=== PATIENT | male | born 1945 | race Caucasian/White ===

== ENCOUNTER 2020-02-16 08:15 | Emergency (ER) | payer OTHER, SELFPAY ==
[2020-02-16 08:35] VITALS: BP 143/69; PULSE 71; RESP 14; TEMP 36.8; O2SAT 99
--- NOTE | 2020-02-16 09:02 | ED.ABDPAIN ---
HPI - Abdominal Pain General Chief Complaint: Abdominal Pain Stated Complaint: Abdominal Pain Time Seen by Provider: 02/16/20 09:02 Source: patient and RN notes reviewed Mode of arrival: ambulatory Limitations: no limitations History of Present Illness HPI narrative: This is a 74 years old male presents to the office for an evaluation of left side abdominal pain. Associated with vomiting. Pain is intermittent with sharp shooting at times. Symptom has slightly better since he vomited however he still felt pain. He also reported right side flank pain for 2 weeks. He is unsure if the flank pain related to gardening or his kidney stone. Denies urinary symptoms. Denies fever. Denies sick contact. Admits to history of colitis and diverticulitis. Denies history of hernia or small bowel obstruction. He still have his appendix and gallbladder. No treatment prior to arrival. He had popsicle this morning. Related Data Home Medications Medication Instructions Recorded Confirmed cetirizine 10 mg PO DAILY 02/16/20 02/16/20 Allergies Allergy/AdvReac Type Severity Reaction Status Date / Time ciprofloxacin [From Cipro] Allergy Hives Verified 02/16/20 08:59 metronidazole [From Flagyl] Allergy Hives Verified 02/16/20 09:00 Review of Systems Review of Systems: Narrative: CONSTITUTIONAL: Denies fever, chills EYES: Denies visual changes ENT: Denies rhinorrhea, congestion, sore throat, otalgia. CARDIOVASCULAR: Denies chest pain, palpitation. RESPIRATORY: Denies dyspnea, wheezing, cough GASTROINTESTINAL: Denies diarrhea. Reports abdominal pain, vomiting and bloating feeling GENITOURINARY: Denies urinary symptoms SKIN: Denies rash MUSCULOSKELETAL: Reports right side back; contribute to walking out in the garden. NEUROLOGIC: Denies lightheaded All other systems reviewed are negative, except as documented in HPI. [facility] Past Medical History Medical History (Updated 02/16/20 @ 09:25 by ERIC Valadez) History of colitis History of diverticulosis Comments At time of signature, I agree with nursing past medical, surgical, social and family history. There is no relevant family history pertinent to the presenting complaint. Exam Narrative: Exam Narrative: GENERAL: This is a well-nourished, well-developed patient, in no apparent distress. CARDIOVASCULAR: Regular rate and rhythm without murmurs, gallops, or rubs. RESPIRATORY: Clear to auscultation. Breath sounds equal bilaterally. No wheezes, rales, or rhonchi. GASTROINTESTINAL: Abdomen soft, with slight tenderness thoughout, nondistended. Bowel sounds are active. No hepato-splenomegaly, or palpable masses. No guarding. Umbilical hernia noted during examination SKIN: warm, intact with no suspicious lesions or rash, good texture and turgor. NEURO: awake, alert, and oriented to person, place and time. There were no obvious focal neurologic abnormalities. Steady gait EXTREMITIES: Normal range of motion. No edema. BACK: Nontender without deformity or crepitance. No flank tenderness. María Coma Scale Eye Opening: Spontaneous 4 [place] Coma Scale Motor: Obeys Commands 6 [place] Coma Scale Verbal: Oriented 5 Course Vital Signs Vital signs: Vital Signs Temperature 98.2 F 02/16/20 08:35 Pulse Rate 71 02/16/20 08:35 Respiratory Rate 14 02/16/20 08:35 Blood Pressure 143/69 H 02/16/20 08:35 Pulse Oximetry 99 02/16/20 08:35 Temperature 98.2 F 02/16/20 08:35 Pulse Rate 71 02/16/20 08:35 Respiratory Rate 14 02/16/20 08:35 Blood Pressure 143/69 H 02/16/20 08:35 Pulse Oximetry 99 02/16/20 08:35 Transfer Transfered to: [facility] Transportation: Other (private car) Transfer rationale: Diagnostic test Accepting physician: Dr. Herrera; reports given JOAQUIM Sutton MDM - Abdominal Pain MDM Narrative Medical decision making narrative: ER for further evaluation Differential Diagnosis Differential diagnosis: Likely abdominal pain, ac
== END 2020-02-16 09:26 | disposition short-term general hospital (02) ==
PROVIDERS: Emergency Provider Nurse Practitioner; PCP Family Medicine
DX: R10.84 Generalized abdominal pain (principal); K57.90 Diverticulosis of intestine, part unspecified, without perforation or abscess without bleeding
CPT/HCPCS: 99202; G0463

== ENCOUNTER 2023-07-22 12:25 | Outpatient (CLI) | payer OTHER, SELFPAY ==
--- NOTE | ~2023-07-22 | PE_ITS ---
EXAMINATION: PET_PETPSMAST_PT DATE: 07/25/2023 07:09 INDICATION: Malignant neoplasm of prostate. Hormone sensitive status. TECHNIQUE: 8.790 mCi of piflufolastat F-18 was administered intravenously. Low dose computed tomograp hy (CT) images were acquired from the base of the brain to the proximal thighs for attenuation correc tion and anatomic localization. Automated exposure control was employed. Dose-length product (DLP) wa s 555 mGy-cm. Positron emission tomography (PET) images were acquired in the same distribution. COMPARISON: None FINDINGS: Head/neck: There are no pathologically enlarged lymph nodes. Chest: Lungs demonstrate mild atelectasis. No pleural effusion. The heart size is normal. There are c oronary artery calcifications. No pericardial effusion. There are no pathologically enlarged lymph no sajan. There is a small sliding hiatal hernia. Abdomen/pelvis/proximal thighs: The liver, gallbladder, spleen, pancreas, and adrenal glands are norm al. There is a 7 mm cyst in right kidney. There are 4 stones in left kidney measuring up to 4 mm. The prostate is mildly enlarged. There is increased activity in the prostate is with maximum SUV of 35.7 . There are bilateral inguinal hernias containing fat. There is diverticulosis of the colon without e vidence of diverticulitis. There are no dilated loops of bowel. The appendix is normal. There are no pathologically enlarged lymph nodes. There is no free intraperitoneal fluid. There is no osseous toby gnancy. IMPRESSION: 1. Mildly enlarged prostate with maximum SUV of 35.7, consistent with primary malignancy. No evidence of metastatic disease. Reviewed, dictated and finalized at location A. ATIENT CODING SPECIALIST IMPRESSION: 1. Mildly enlarged prostate with maximum SUV of 35.7, consistent with primary m alignancy. No evidence of metastatic disease.
== END 2023-07-22 12:26 | disposition home or self-care (01) ==
PROVIDERS: PCP Family Medicine; Visit Provider Urology
DX: Z19.1 Hormone sensitive malignancy status (principal)
CPT/HCPCS: 78815; A9595

== ENCOUNTER 2025-02-15 12:53 | Observation (INO) | payer MEDICARE, SELFPAY ==
--- NOTE | ~2025-02-15 | XR_ITS ---
EXAMINATION: XR sm bowel follow through DATE: 02/15/2025 17:22 INDICATION: Small bowel obstruction versus ileus TECHNIQUE: Laboratory Equipment Cleaner radiograph(s) of the abdomen was/were obtained. Oral contrast was administered, and sequential radiographs of the abdomen were obtained until oral contrast was noted to be in the proxi mal colon. Spot fluoroscopic images of the small bowel were obtained. Fluoroscopy exposure time was 0 .4 minutes. A total of 9 fluoroscopic images and 10 overhead radiographs were obtained. Total DAP was 3.9 Gycm^2. COMPARISON: None. FINDINGS: Laboratory Equipment Cleaner image demonstrates excreted contrast in bilateral renal collecting systems and in the bladder l ikely related to reported outside institution contrast-enhanced CT performed earlier in the day. Abdullahi sit time from the stomach to proximal colon was approximately 1.5 hours. There is normal caliber and mucosal fold pattern throughout the small bowel. Terminal ileum is normal. IMPRESSION: 1. Normal small bowel follow-through study. Reviewed, dictated and finalized at location A.
[2025-02-15 11:50] VITALS: BMI 25.1
--- OUTSIDE RECORDS SUMMARY | 2025-02-15 11:58 | XMS_ITS | Referral Summary ---
Author Organization [facility] [place] [address] [facility] lt Address [address] [place] [address] Care Team Providers Care Tack Picker Name Role Phone Justen Interiano MD Primary Care Provider + [phone] Alessandro Andre MD Unavailable [phone] Tashi Yang MD PhD Unavailable [phone]- [phone] Dinorah Medrano MD Unavailable [phone] Benton Morris MD Unavailable [phone] Encounters Date Type Department Care Team Description 02/15/2025 6:51 AM CDT - 02/15/2025 11:08 AM CDT Emergency [facility] Emergency Department [address] [place] [address] Johann Hassan MD SBO (small bowel obstruction) (HCC) (Primary Dx) Discharge Disposition: Discharge to a critical access hospital 01/07/2025 8:30 AM CDT Office Visit [facility] [address] [place] [address] Evelia Escalante NP Bacterial conjunctivitis of right eye (Primary Dx) 11/27/2024 8:00 AM CDT Lab [facility] [address] [place] [address] Malignant neoplasm of prostate (HCC) 11/27/2024 8:00 AM CDT Office Visit [facility] Oncology [address] [place] [address] Medical Office [address] [place] [address] Benton Morris MD Follicular lymphoma grade I, unspecified body region (HCC) (Primary Dx); Malignant neoplasm of prostate (HCC) 11/26/2024 Telephone [facility] [address] [place] [address] Office [facility] [address] [place] [address] Isaura Barlow, CLT from Last 3 Months Allergies Active Allergy Reactions Criticality Noted Date Comments Ciprofloxacin Hives Medium 02/16/2020 Clindamycin Rash Reaction: rash, , Metronidazole Hives Medium 02/16/2020 Penicillins Hives Medium Medications aspirin 81 mg enteric coated tablet Take 1 tablet (81 mg total) by mouth daily Active ibuprofen (ADVIL,MOTRIN) 400 mg tabletIndicatio ns:Pain Take by mouth every 6 (six) hours as needed for pain Active calcium citrate malate-vit D3 250 mg-2.5 mcg (100 unit) tablet Take 2 tablets by mouth 2 (two) times a day Active methocarbamoL (ROBAXIN) 500 mg tablet Take 1 tablet (500 mg total) by mouth 4 (four) times a day as needed for muscle spasms 60 tablet 2 11/22/19 24 Active polyethylene glycol (MIRALAX) 17 gram/dose bulk powder Take 17 g by mouth daily Active psyllium, aspartame, SF (METAMUCIL SF) 3.4 gram packet Take 1 packet by mouth daily Active amLODIPine (NORVASC) 5 mg tablet Take 1 tablet by mouth once daily 90 tablet 11/20/19 25 Active albuterol HFA (PROVENTIL HFA,VENTOLIN HFA,PROAIR HFA) 90 mcg/actuation inhalerIndicati ons:Moderate persistent asthma, unspecified whether complicated INHALE 2 PUFFS BY MOUTH EVERY 6 HOURS NEEDED FOR WHEEZING 9 g 02/09/20 25 Active hydrOXYzine (ATARAX) 25 mg tablet TAKE 1 TABLET BY MOUTH EVERY 6 HOURS NEEDED FOR ITCHING 90 tablet 02/09/20 25 Active fluticasone propion-salmete roL (ADVAIR DISKUS) 250-50 mcg/dose diskus inhaler INHALE 1 PUFF BY MOUTH TWICE DAILY. RINSE MOUTH WITH WATER AFTER USE, DO NOT SWALLOW. 60 each 02/09/20 25 Active hydrOXYzine (ATARAX) 25 mg tablet TAKE 1 TABLET BY MOUTH EVERY 6 HOURS NEEDED FOR ITCHING 90 tablet 10/16/19 25 025 Discontinued albuterol HFA (PROVENTIL HFA,VENTOLIN HFA,PROAIR HFA) 90 mcg/actuation inhalerIndicati ons:Moderate persistent asthma, unspecified whether complicated INHALE 2 PUFFS BY MOUTH EVERY 6 HOURS NEEDED FOR WHEEZING 9 g 11/20/19 25 025 Discontinued fluticasone propion-salmete roL (ADVAIR DISKUS) 250-50 mcg/dose diskus inhaler INHALE 1 PUFF BY MOUTH TWICE DAILY. RINSE MOUTH WITH WATER AFTER USE, DO NOT SWALLOW. 60 each 01/08/20 25 025 Discontinued Active Problems Problem Noted Date Diagnosed Date Limitation of joint motion of finger, right /0 12/2023 Assessment & Plan (06/22/2024 11:32 AM FINANCE ADVISOR): Limitation in ROM in R arm but no pain noted. There is weakness as well. Will refer to ortho for further evaluation. Encounter for Medicare annual wellness exam 03/19 Assessment & Plan (04/10/2024 10:39 AM CDT): Visit preventive in nature. We reviewed medications, chronic conditions, risk factors, lifestyle recommendations. Reviewed immunization recommendations. Follow-up in 1 year for annual wellness. Irritable bowel syndrome 04/02/2024 Chronic constipation 04/02/2024 History of Clostridioides difficile infection Irritable bowel syndrome wit h both constipation and diarrhea 02/16/2024 History of Clostridium difficile infection 02/15 Hospital discharge follow-up 12/21/2023 Assessment & Plan (12/21/2023 11:06 AM CDT): Kita Campbell NP have personally reviewed pertinent inpatient and/or ED records, including discharge medications and Clindesk if applicable. This patient's discharge medication list has been reviewed and reconciled with his outpatient medication list and has also been reviewed with patient and/or caregiver. I have noted any changes. Abdominal pain 12/14/2023 Diverticulitis of colon 08/24/2023 Overview (08/24/2023): Phreesia 04/17/2023 UTI (urinary tract infection) 08/24/2023 Situational anxiety 07/14/2023 Assessment & Plan (07/14/2023 10:35 AM FINANCE ADVISOR): Good response to p.r.n. use of hydroxyzine, reports sleeping well with use medication. Has had difficulty recently t urning brain off , multiple recent office visits and hospitalizations. Overall feels moods are good, denies feeling depressed. Patient with strong family support. Hemorrhage 12/23/2022 LLQ pain 11/12/2022 Assessment & Plan (11/12/2022 2:58 PM CDT): Chronic pain happens intermittently LLQ with bloating and constipation about every 2 weeks, usually takes 3 BMs to feel better, BM starts off hard then becomes more loose and explosive before relief of pain. Usually has normal formed BM daily outside of these episodes, takes miralax every other day to keep bowel movements regular No prior surgeries No NSAID use No known family history of GI issues Recently hospitalized for SBO where CT showed transition point at the right iliac fossa that improved with conservative management Small-bowel follow-through showed a soft tissue density mass in the mesentery measuring 2.4 x 2 cm.Patient had a previous similar episode about 2 and half years ago was told he had a bowel obstruction at that time was treated conservatively as well. Colonoscopy 2016 with left diverticulosis and internal hemorroids Plan Follow up repeat CT scheduled for next month for reevaluation of mesenteric mass previously seen on small bowel follow through. Given the chronicity of his symptoms and lack of other systemic issues a raging malignancy is not likely. I agree with Dr. Ochoa that an underlying possible inflammatory process of the small bowel or adhesion from prior diverticulitis could contribute to his symptoms. CRP was previously noted to be elevated to 50 in 2019. Will repeat. MR enterography would given a better evaluation of the small bowel, will obtain pending repeat CT. 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 Known mass. Will continue to monitor. Assessment & Plan (12/24/2022 11:28 AM CDT): In setting of recurrent SBO. CT A&P 11/24/22 notable for improved small bowel distension, but irregular 2.7 X 2.5 cm X1.[address] read suggesting possible lymphoma vs. Carcinoid. - S/p IR bx 12/23 - Q6 CBC's-- hgb stable - Outpt follow up with Dr. Ochoa Recurrent microscopic hematuria 10/22/2022 Mild intermittent asthma without complication Small bowel obstruction 10/21/2022 Assessment & Plan (04/10/2024 10:37 AM CDT): Denies abdominal pain. Bowels are moving. He has colonoscopy scheduled next month. Following closely with GI and will continue to do so. Assessment & Plan (07/14/2023 10:33 AM FINANCE ADVISOR): Denies any abdominal pain following hospital discharge. Patient continues MiraLax, reports normal BMs. No nausea or vomiting. Denies any blood in stools. Recommended he follow-up with established central supply worker. Assessment & Plan (12/23/2022 12:43 PM CDT): Continue miralax daily Assessment & Plan (11/04/2022 10:09 AM CDT): I am going to order a repeat CT scan to evaluate the mesenteric mass seen on the hospital scan. Given the lack of surgery and is intermittent symptoms that do not appear to be related to this mesenteric lesion he may have some intrinsic issues with the small bowel. These may be intermittent bouts of enteritis or some kind of inflammatory process. It is always possible that he has some kind of adhesive band from a prior episode of diverticulitis. I am going to refer him to GI to have them weigh in on these symptoms. Bronchitis 08/25/2022 Shortness of breath 08/25/2022 Assessment & Plan (08/25/2022 4:26 PM FINANCE ADVISOR): Resolved. Breathing even and unlabored. No chest pain or tightness. Will continue to monitor. Moderate persistent asthma 08/25/2022 Assessment & Plan (08/25/2022 12:54 PM FINANCE ADVISOR): Encouraged continue use of ICS and prn use of albuterol. No concerning findings on exam. Fleeting episode of chest pain preceeded by wheezing and improved with use of inhalers. Advised patient to follow up immediately and go to ER if experiencing episodes of chest pain. Follicular lymphoma grade I 07/18/2022 Overview (08/24/2023): of the small bowel, treated 2022, and resolved Assessment & Plan (04/10/2024 10:38 AM CDT): Monitoring with Oncology. JUANIS with most recent screening. Will continue following closely with Oncology. Malignant neoplasm of prostate 07/18/2022 Cancer Staging:Clinical: Unsigned Assessment & Plan (04/10/2024 10:11 AM CDT): Completed radiation in November. Will continue monitoring with Urology. Assessment & Plan (12/21/2023 11:05 AM CDT): Following closely with Urology and will continue to do so. Assessment & Plan (07/14/2023 10:34 AM FINANCE ADVISOR): Reviewed office visit notes of Dr. Kirk, patient will proceed with radiation oncology. Scheduled for PET scan early next month. Nephrolithiasis 07/18/2022 Diverticulosis 02/16/2020 Partial small bowel obstruction 02/16/2020 Localized swelling on right hand 04/11/2019 Assessment & Plan (06/22/2024 11:31 AM FINANCE ADVISOR): Swelling continues will add Meloxicam to aid in relief of swelling and hopefully restore ROM. Antibiotic-induced allergic rash 03/16/2019 Bleeding from the nose 08/17/2017 Assessment & Plan (08/17/2017 1:54 PM FINANCE ADVISOR): Use saline nasal spray to keep air way moist. Use humidifier. Do not blow nose forcefully for the next week. Use antibiotic ointment. BMI 26.0-26.9,adult 08/17/2017 Assessment & Plan (06/22/2024 11:31 AM FINANCE ADVISOR): Weight appropriate for patient. Assessment & Plan (08/17/2017 2:53 PM FINANCE ADVISOR): BMI wnl-continue with exercise and diet Excessive ear wax, bilateral 08/17/2017 Assessment & Plan (08/17/2017 2:55 PM FINANCE ADVISOR): Excessive Ear Wax Prevention Cerumen accumulation or excessive ear wax can cause symptoms like-Hearing loss ?Earache ?Ear fullness ?Itchiness ?Reflex cough ?Dizziness ?Tinnitus Normal ears use a cotton ball dipped in mineral oil, olive oil, Baby oil, or Carver oil and place in the external canal for 10 to 20 minutes once per week. For Chronic cerumen impactions can perform on a scheduled baseis-3 drops of olive oil or Baby oil in each ear, three times daily for Three weeks, Three times per year. Routine cleaning of the ears by a health professional every 6 to 12 months is also suggested. Patients should be instructed that chronic use of cotton swabs or cerumenolytics should not be performed. Cerumenolytics are safe to use in patients with NO history of infections, perforations, or otologic surgery. Cerumenolytics should be avoided if tympanic membrane damage is suspected. If a patient has a history of drainage from the ear, ear pain, or frequent ear infections earlier in life, then the tympanic membrane may be impaired and cerumenolytics should not be employed. If safe for you, use Debrox drops, Hydrogen peroxide or Benzalkonium Chloride softening agents Urticaria 07/20/2016 Overview (10/22/2016): Urticaria Assessment & Plan (04/11/2019 11:30 AM CDT): Prednisone taper & triamcinolone cream sent to pharmacy. Will start prednisone today. Discussed cold compresses, cool showers, ice pack to back & nothing hot to area. Discussed prednisone SE & scheduling. Reviewed signs secondary infection. If rash is not improving after completing steroids--return to clinic. Triamcinolone cream sent. Aware to apply thin layer. Reviewed red flags. Assessment & Plan (03/16/2019 10:09 AM CDT): Complete the prednisone as directed You may use Benadryl or Zyrtec for itching You can use an OTC hydrocortisone cream to soothe your skin topically Keep your skin cool & wear loose clothing to avoid becoming hot, which could increase the itching. If your rash is not getting better after finishing the steroids, please RTC or follow up w PCP If your symptoms worsen- go to ER HTN (hypertension) 12/01/2013 Overview (08/24/2023): Hypertension Assessment & Plan (04/10/2024 10:37 AM CDT): Stable. Continue amlodipine. Continue heart healthy diet. Will continue to monitor. Assessment & Plan (12/23/2022 12:44 PM CDT): Continue home BP meds Asthma 12/01/2013 Overview (08/24/2023): ASTHMA NOS Phreesia 04/17/2023 Disorder of prostate 12/01/2013 Overview (10/22/2016): PROSTATIC DISORDER NOS Elevated prostate specific antigen (PSA) 013 Overview (08/24/2023): Elevated PSA Left ureteral stone Resolved Problems Problem Noted Date Diagnosed Date Resolved Date C. difficile colitis 12/21/2023 024 Assessment & Plan (12/21/2023 11:06 AM CDT): Symptomatically improving. Continue vancomycin. Follow-up with Gastroenterology as directed. Immunizations Immunization Administration Dates Next Due COVID-19 mRNA (LookFlow) 0.3 m L (30 mcg) vaccine (12 years and up) 04/20/2024,04/13/2023 Influenza, Quadrivalent, Hig h Dose, Preservative Free, Intrr 04/04/2023,03/31/2022 Influenza, Quadrivalent, Spl it, Intramuscular 07/26/2017 Influenza, Quadrivalent, Spl it, Preservative Free, Intramuscular 07/26/2018 Influenza, Split 11/21/2013,11/21/2013 Influenza, Trivalent, High D ose, Split, Preservative Free, Intramuscular 04/10/2024,07/27/2019 Influenza, Trivalent, IM (MDV) 06/03/2008 Influenza, Unspecified 04/13/2023,2020,03/31/2021,03/30(Deferred: Patient Refused) Moderna SARS-CoV-2 Monovalen t Vaccination (12+ YRS) 02/13/2022,05/09/2021,09/30/2020,08/27 Pfizer Sars-Cov-2 Bivalent V accination (12+ YRS) 04/16/2022 Pneumococcal Conjugate PCV 13 02/27/2019 Pneumococcal Conjugate Pcv20 12/21/2023 Pneumococcal Conjugate, Unspecified 03/18(Deferred: Patient Refused),07/18/2019(Deferred: Patient Refused) Pneumococcal Polysaccharide PPV23 09/08/2007 Sars-cov-2 Covid-19 Mrna, Bi valent, Original/omicron Ba.1 04/20/2024 Td, adsorbed 09/08/2007 ZOSTER LIVE 01/17/2013,01/17/2013 Social History Tobacco Use Types Packs/Day Years Used Date Smoking Tobacco: Former Cigarettes 1 969 - 1984 Smokeless Tobacco: Never Tobacco Cessation:Counseling Given: Not Answered Alcohol Use Standard Drinks/Week Comments No 0 (1 standard drink = 0.6 oz pur e alcohol) AUDIT-C Answer Date Recorded Q1: How often do you have a drink containing alcohol? Never 05/14/2024 Q2: How many drinks containi ng alcohol do you have on a typical day when you are drinking? Patient does not drink Frequency of Binge Drinking Not on file 04/18 PHQ-2 Answer Date Recorded PHQ-2 Total Score (If total score is 3 or more points, staff should administer the PHQ-9) 0 06/22/2024 Personal Safety Answer Date Recorded Have you ever been in or are you currently in a harmful physical or emotional relationship or is someone making you feel afraid or unsafe? Denies 02/15/2025 Sex and Gender Information Value Date Recorded Sex Assigned at Not on file Legal Sex Male 11:33 AM FINANCE ADVISOR Gender Identity Not on file Sexual Orientation Not on file Last Filed Vital Signs Vital Sign Reading Time Taken Comments Blood Pressure 133/67 02/15/2025 11:00 AM CDT Pulse 60 02/15/2025 11:00 AM CDT Temperature 36.2 C (97.2 F) 02/15/2025 6:50 AM CDT Respiratory Rate 16 02/15/2025 11:00 AM CDT Oxygen Saturation 94% 02/15/2025 11:00 AM CDT Inhaled Oxygen Concentration - - Weight 70.3 kg (155 lb) 02/15/2025 6:50 AM CDT Height 166.4 cm (5' 5.5) 02/15/2025 6:50 AM CDT Body Mass Index 25.4 02/15/2025 6:50 AM CDT Plan of Treatment Not on file Medical Devices Explanted Type Area Rehab Therapist Device Identifier Shelf Expiration Date Model / Serial / Lot [employer] 180-222 Contour 6fr 24cm Large Inner Lumen Low Profile Bladder Jesse Taper Latex Free - [id number] Implanted:Qty: 1 on 02/20/2020 by Alessandro Andre MD at [facility] Explanted:Qty: 1 on 03/05/2020 by Alessandro Andre MD Left: Ureter [employer] 12/18/2022 180-222 / / [id number] Procedures Procedure Name Priority Date/Time Associated Diagnosis Comments URINALYSIS AND REFLEX TO MICROSCOPIC AND CULTURE STAT 02/15/2025 10:[address] ABDOMEN PELVIS W CONTRAST ED 02/15/2025 7:47 AM CDT SEPSIS LACTATE WITH REFLEX Routine 02/15/2025 7:27 AM CDT EGFR STAT 02/15/2025 7:18 AM CDT DIFFERENTIAL AUTO STAT 02/15/2025 7:1 8 AM CDT LIPASE STAT 02/15/2025 7:18 AM CDT COMPREHENSIVE METABOLIC PANEL STAT 02/15/2025 7:18 AM CDT CBC WITH AUTO DIFFERENTIAL STAT 02/15/2025 7:18 AM CDT DIFFERENTIAL AUTO Routine 11/27/2024 7:4 5 AM CDT Malignant neoplasm of prostate (HCC) CBC WITH AUTO DIFFERENTIAL Routine 11/27/2024 7:45 AM CDT Malignant neoplasm of prostate (HCC) LACTATE DEHYDROGENASE Routine 11/27/2024 7:45 AM CDT Malignant neoplasm of prostate (HCC) from Last 3 Months Results * (ABNORMAL) Urinalysis reflex to microscopic and culture Urine (02/15/2025 10:25 AM CDT) Color, ur Straw Yellow Clarity, ur Clear Clear [facility] (YA) Specific gravity, ur 1.040(H) 1.003 - 1.030 [facility] (YA) pH, urine 8.0 [facility] (YA) Comment: Interpretive Data U rine pH is affected by diet, medications, systemic acid-base disturbances, and renal tubular function. pH may affect urinary stone formation. For example, urine pH below 6.0 may help reduce the tendency for calcium phosphate stones and pH greater than 6.0 may reduce the tendency for uric acid stone formation. Source: Steve I & Combine Current Interpretive Data was last revised on 2017 Protein, ur ql Negative Negative [facility] R [facility] (YA) Glucose, ur ql Negative Negative [facility] (YA) Ketones, ur 2+(A) Negative [facility] (YA) Bilirubin, ur Negative Negative [facility] (YA) Blood, ur Negative Negative [facility] (YA) Urobilinogen, ur <2.0 <2.0 mg/dL [facility] (YA) Nitrite, ur Negative Negative [facility] (YA) Leukocyte esterase, ur Negative Negative [facility] (YA) UA reflex comment Reflex conditions for microscopic UA and culture not met. [facility] (YA) Urine 02/15/2025 10:2 5 AM CDT 02/15/2025 10:30 AM CDT us Johann Hassan MD LAB MICROBIOLOGY - GENERAL ORDERABLES Final Result [facility] [address] [facility] Department [place] [address] * CT Abdomen Pelvis W Contrast (02/15/2025 7:47 AM CDT) Anatomical Region Laterality Modality Body N/A Computed Tomogra phy 02/15/2025 7:54 AM CDT Narrative 02/15/2025 8:03 AM CDT EXAM DESCRIPTION: CT ABDOMEN PELVIS W CONTRAST REASON FOR STUDY: Abdominal pain, acute, nonlocalized Abdominal pain, vomiting and diarrhea that started at midnight No surgeries TECHNIQUE: CT scan of the abdomen and pelvis performed with intravenous and without oral contrast using helical scanning technique with dynamic intravenous contrast injection. Reconstructed coronal and sagittal MPR images reviewed. All images stored on PACS. Automated exposure control was used as a dose optimization technique for this examination. CONTRAST TYPE/DOSE: 75mL of IOVERSOL 350 MG IODINE/ML INTRAVENOUS SYRINGE injected via intravenous COMPARISON: 08/20/2024 FINDINGS: LOWER CHEST: No significant pulmonary abnormalities. No effusion. LIVER: Normal size. No identified cystic or solid masses. GALLBLADDER: Normally distended BILE DUCTS: No intrahepatic or extrahepatic ductal dilatation. SPLEEN: Normal size. No focal lesions. PANCREAS: No identified cystic or solid masses. No significant calcifications. No adjacent inflammation or peripancreatic fluid collections. Pancreatic duct not dilated. ADRENALS: Normal. KIDNEYS/URINARY TRACT: Right kidney demonstrates no stone, hydronephrosis or perinephric stranding. Left kidney demonstrates mid and lower pole 0.4 cm nonobstructive stones. No hydronephrosis or hydroureter. Midpole hypo density most suggestive of simple cysts measuring 1.4 cm unchanged from previous with no follow-up required per guidelines. Urinary bladder is unremarkable. GI: The stomach, descending and transverse duodenum appear unremarkable. Transverse duodenal diverticulum measures 1.9 cm without surrounding induration. Generally unchanged. Loops of small bowel demonstrate moderate fluid and air filled distention extending to the mid ileum and transitioning to a more normal caliber. No pneumatosis, marked wall thickening, abnormal enhancement pattern, surrounding induration or adenopathy. Exact etiology is uncertain. Consider severe ileus or developing small bowel obstruction. The terminal ileum, cecum and appendix appear normal. Colon demonstrates small to moderate stool burden. PERITONEUM: No ascites or free air. RETROPERITONEUM: Subtle hazy density along the small bowel mesentery is similar to previous and may be postinflammatory. REPRODUCTIVE: No significant abnormality. VASCULATURE: No abdominal aortic aneurysm. MUSCULOSKELETAL: No significant abnormality. OTHER: No other abnormality. IMPRESSION: 1. Moderate fluid and air-filled distention of small bowel extending to the mid ileum with transition to a more normal caliber. Consider severe ileus or developing small bowel obstruction. 2. Subtle hazy density along the small bowel mesentery is similar to previous and may be postinflammatory. 3. Nonobstructive left renal stones without hydronephrosis or hydroureter. 4. Transverse duodenal diverticulum without surrounding induration. THIS IS AN ELECTRONICALLY VERIFIED FINAL REPORT 02/15/2025 8:03 AM - Electronically signed by Benton Castaneda M.D. RB: LUCIUS Report ID: [id number] Reading Location: [id number] Procedure Note Benton Castaneda MD - 02/15/2025 EXAM DESCRIPTION: CT ABDOMEN PELVIS W CONTRAST REASON FOR STUDY: Abdominal pain, acute, nonlocalized Abdominal pain, vomiting and diarrhea that started at midnight Nosurgeries TECHNIQUE: CT scan of the abdomen and pelvis performed with intravenousand without oral contrast using helical scanning technique with dynamic intravenous contrast injection. Reconstructed coronal and sagittal MPRimages reviewed. All images stored on PACS. Automated exposure control was usedas a dose optimization technique for this examination. CONTRAST TYPE/DOSE: 75mL of IOVERSOL 350 MG IODINE/ML INTRAVENOUSSYRINGE injected via intravenous COMPARISON: 08/20/2024 FINDINGS: LOWER CHEST: No significant pulmonary abnormalities. No effusion. LIVER: Normal size. No identified cystic or solid masses. GALLBLADDER: Normally distended BILE DUCTS: No intrahepatic or extrahepatic ductal dilatation. SPLEEN: Normal size. No focal lesions. PANCREAS: No identified cystic or solid masses. No significant calcifications. No adjacent inflammation or peripancreatic fluidcollections. Pancreatic duct not dilated. ADRENALS: Normal. KIDNEYS/URINARY TRACT: Right kidney demonstrates no stone,hydronephrosis or perinephric stranding. Left kidney demonstrates mid and lower pole 0.4 cm nonobstructive stones.No hydronephrosis or hydroureter. Midpole hypo density most suggestive ofsimple cysts measuring 1.4 cm unchanged from previous with no follow-up requiredper guidelines. Urinary bladder is unremarkable. GI: The stomach, descending and transverse duodenum appear unremarkable. Transverse duodenal diverticulum measures 1.9 cm without surrounding induration. Generally unchanged. Loops of small bowel demonstrate moderate fluid and air filled distention extending to the mid ileum and transitioning to a more normal caliber. No pneumatosis, marked wall thickening, abnormal enhancement pattern,surrounding induration or adenopathy. Exact etiology is uncertain. Consider severeileus or developing small bowel obstruction. The terminal ileum, cecum and appendix appear normal. Colon demonstrates small to moderate stool burden. PERITONEUM: No ascites or free air. RETROPERITONEUM: Subtle hazy density along the small bowel mesentery is similar to previous and may be postinflammatory. REPRODUCTIVE: No significant abnormality. VASCULATURE: No abdominal aortic aneurysm. MUSCULOSKELETAL: No significant abnormality. OTHER: No other abnormality. IMPRESSION: 1. Moderate fluid and air-filled distention of small bowel extending tothe mid ileum with transition to a more normal caliber. Consider severe ileusor developing small bowel obstruction. 2. Subtle hazy density along the small bowel mesentery is similar to previous and may be postinflammatory. 3. Nonobstructive left renal stones without hydronephrosis orhydroureter. 4. Transverse duodenal diverticulum without surrounding induration. THIS IS AN ELECTRONICALLY VERIFIED FINAL REPORT 02/15/2025 8:03 AM - Electronically signed by Benton Castaneda M.D. RB: LUCIUS Report ID: [id number] Reading Location: [id number] Johann Hassan MD IMG CT PROCEDURES F inal Result * Sepsis Lactate w/ Reflex (02/15/2025 7:27 AM CDT) Sepsis Lactate 1.6 0.7 - 2.0 mmol/L Blood 02/15/2025 7:27 AM CDT 02/15/2025 7:31 AM CDT Johann Hassan MD LAB BLOOD ORDERABLE S Final Result Performing Organization Address [facility] Co de Phone Number [facility] ([place]) 1 [facility] Department [place] [address] * (ABNORMAL) eGFR (02/15/2025 7:18 AM CDT) eGFR 51(L) >=60 mL/min/1. 73 m2 Comment: Interpretive Data Reference Interval Normal >/= 90 mL/min/1.73m2 Mildly decreased* 60 - 89 mL/min/1.73m2 Mildly to moderately decreased 45 - 59 mL/min/1.73m2 Moderately to severely decreased 30 - 44 mL/min/1.73m2 Severely decreased 15 - 29 mL/min/1.73m2 Kidney Failure < 15 mL/min/1.73m2 *Relative to young adult level Estimated glomerular filtration rate is determined by the 2020 CKD-EPI equation recommended by the National Kidney [employer] (A Unifying Approach to GFR Estimation: Recommendations of the NKF-ASK Task Force on Reassessing the Inclusion of Race in Diagnosing Kidney Disease, JASN 2020). The CKD-EPI equation should not be used for patients with unstable renal function and has not been validated in children and those over 70. Current interpretive data was last reviewed 2021. Blood 02/15/2025 7:18 AM CDT 02/15/2025 7:25 AM CDT Johann Hassan MD LAB BLOOD ORDERABLE S Final Result [facility] ([place]) 1 [facility] Department [place] [address] * (ABNORMAL) Differential, auto (02/15/2025 7:18 AM CDT) Neutrophil abs 6.33 1.50 - 6.50 K/cumm Imm gran abs 0.02 0.00 - 0.10 K/cumm [facility] ([place]) Lymphocyte abs 0.43(L) 0.80 - 3.30 K/cumm [facility] ([place]) Monocyte abs 0.32 0.20 - 0.80 K/cumm [facility] ([place]) Eosinophil abs 0.02 0.00 - 0.50 K/cumm [facility] ([place]) Basophil abs 0.03 0.00 - 0.10 K/cumm [facility] ([place]) Neutrophil pct 88.5 % [facility] ([place]) Comment: Interpretive Data Percent cell count reference ranges are not reported, since discordance with absolute values may lead to misinterpretation of CBC data. Current Interpretive Data was last revised on 2017. Imm gran pct 0.3 % [facility] ([place]) Comment: Interpretive Data Percent cell count reference ranges are not reported, since discordance with absolute values may lead to misinterpretation of CBC data. Current Interpretive Data was last revised on 2017. Lymphocyte pct 6.0 % [facility] ([place]) Comment: Interpretive Data Percent cell count reference ranges are not reported, since discordance with absolute values may lead to misinterpretation of CBC data. Current Interpretive Data was last revised on 2017. Monocyte pct 4.5 % [facility] ([place]) Comment: Interpretive Data Percent cell count reference ranges are not reported, since discordance with absolute values may lead to misinterpretation of CBC data. Current Interpretive Data was last revised on 2017. Eosinophil pct 0.3 % [facility] ([place]) Comment: Interpretive Data Percent cell count reference ranges are not reported, since discordance with absolute values may lead to misinterpretation of CBC data. Current Interpretive Data was last revised on 2017. Basophil pct 0.4 % [facility] ([place]) Comment: Interpretive Data Percent cell count reference ranges are not reported, since discordance with absolute values may lead to misinterpretation of CBC data. Current Interpretive Data was last revised on 2017. Blood 02/15/2025 7:18 AM CDT 02/15/2025 7:25 AM CDT us Johann Hassan MD LAB BLOOD ORDERABLE S Final Result [facility] ([place]) 1 [facility] Department [place] [address] * (ABNORMAL) CBC with auto differential (02/15/2025 7:18 AM CDT) WBC 7.15 3.80 - 9.90 K/cumm Hgb 15.0 13.0 - 17.5 g/dL [facility] ([place]) Hct 44.5 38.9 - 50.3 % [facility] ([place]) Plt 280 150 - 400 K/cumm [facility] ([place]) MPV 8.7(L) 9.1 - 12.3 fL [facility] ([place]) RBC 5.19 4.30 - 5.80 M/cumm [facility] ([place]) MCV 85.7 81.3 - 96.4 fL [facility] ([place]) MCH 28.9 27.1 - 33.3 pg [facility] ([place]) MCHC 33.7 32.3 - 35.7 g/dL [facility] ([place]) RDW CV 14.1 11.1 - 14.9 % [facility] ([place]) RDW SD 44.0 35.7 - 48.1 fL [facility] ([place]) NRBC abs 0.00 0.00 - 0.01 K/cumm [facility] ([place]) Blood 02/15/2025 7:18 AM CDT 02/15/2025 7:25 AM CDT us Johann Hassan MD LAB BLOOD ORDERABLE S Final Result [facility] ([place]) 1 [facility] Department [place] [address] * Lipase (02/15/2025 7:18 AM CDT) Lipase 26 10 - 99 Units/L [facility] ([place]) Blood 02/15/2025 7:18 AM CDT 02/15/2025 7:25 AM CDT Johann Hassan MD LAB BLOOD ORDERABLE S Final Result [facility] SPE[facility] ([place]) 1 [facility] Department [place] [address] * (ABNORMAL) Comprehensive metabolic panel (02/15/2025 7:18 AM CDT) Sodium 139 135 - 145 mmol/L [facility] ([place]) Potassium, pl 4.2 3.3 - 4.9 mmol/L [facility] ([place]) Chloride 99 97 - 110 mmol/L [facility] ([place]) CO2 23 22 - 32 mmol/L [facility] ([place]) Anion gap 17(H) 2 - 15 mmol/L [facility] ([place]) BUN 20 6 - 25 mg/dL [facility] ([place]) Creatinine 1.39(H) 0.80 - 1.30 mg/dL [facility] ([place]) Glucose 120 70 - 199 mg/dL [facility] ([place]) Comment: Interpretive Data Fasting glucose >/= 126 mg/dl is diagnostic for diabetes. Fasting is defined as no caloric intake for at least 8 hours. Fasting glucose between 100 mg/dl to 125 mg/dl is diagnostic of prediabetes. In a patient with classic symptoms of hyperglycemia or hyperglycemic crisis, a random glucose >/= 200 mg/dl is diagnostic for diabetes. In the absence of unequivocal hyperglycemia, results should be confirmed by repeat testing. The classification and Diagnosis of Diabetes Diabetes Care 2021; 46: S19-S40. Current interpretive data was last revised 2022. Calcium 10.9(H) 8.5 - 10.3 mg/dL [facility] ([place]) Bilirubin, total 0.7 0.1 - 1.2 mg/dL [facility] ([place]) Protein, pl 7.9 6.5 - 8.5 g/dL [facility] ([place]) Albumin 5.4(H) 3.5 - 5.0 g/dL [facility] ([place]) Alk phos 124 40 - 130 Units/L [facility] ([place]) ALT 29 7 - 55 Units/L [facility] ([place]) AST 43 10 - 50 Units/L [facility] ([place]) Blood 02/15/2025 7:18 AM CDT 02/15/2025 7:25 AM CDT us Johann Hassan MD LAB BLOOD ORDERABLE S Final Result [facility] ([place]) 1 [facility] Department [place] [address] * Differential, auto (11/27/2024 7:45 AM CDT) Neutrophil abs 2.55 1.50 - 6.50 K/cumm [facility] ([place]) Comment:Testing performed by : [facility] [address], Medical Office [facility] [address], [place] [address] Imm gran abs 0.01 0.00 - 0.10 K/cumm [facility] ([place]) Comment:Testing performed by : [facility] [address], Medical Office [facility] [address], [place] [address] Lymphocyte abs 0.83 0.80 - 3.30 K/cumm [facility] ([place]) Comment:Testing performed by : [facility] [address], Medical Office [facility] [address], [place] [address] Monocyte abs 0.44 0.20 - 0.80 K/cumm [facility] ([place]) Comment:Testing performed by : [facility] [address], Medical Office [facility] [address], [place] [address] Eosinophil abs 0.29 0.00 - 0.50 K/cumm [facility] ([place]) Comment:Testing performed by : [facility] [address], Medical Office [facility] [address], [place] [address] Basophil abs 0.04 0.00 - 0.10 K/cumm [facility] ([place]) Comment:Testing performed by : [facility] [address], Medical Office [facility] [address], [place] [address] Neutrophil pct 61.2 % [facility] ([place]) Comment: Interpretive Data Percent cell count reference ranges are not reported, since discordance with absolute values may lead to misinterpretation of CBC data. Current Interpretive Data was last revised on 2022. Testing performed by: [facility] [address], Medical Office [facility] [address], [place] [address] Imm gran pct 0.2 % [facility] ([place]) Comment: Interpretive Data Percent cell count reference ranges are not reported, since discordance with absolute values may lead to misinterpretation of CBC data. Current Interpretive Data was last revised on 2022. Testing performed by: [facility] [address], Medical Office [facility] [address], [place] [address] Lymphocyte pct 20.0 % [facility] ([place]) Comment: Interpretive Data Percent cell count reference ranges are not reported, since discordance with absolute values may lead to misinterpretation of CBC data. Current Interpretive Data was last revised on 2022. Testing performed by: [facility] [address], Medical Office [facility] [address], [place] [address] Monocyte pct 10.6 % [facility] ([place]) Comment: Interpretive Data Percent cell count reference ranges are not reported, since discordance with absolute values may lead to misinterpretation of CBC data. Current Interpretive Data was last revised on 2022. Testing performed by: [facility] [address], Medical Office [facility] [address], [place] [address] Eosinophil pct 7.0 % [facility] ([place]) Comment: Interpretive Data Percent cell count reference ranges are not reported, since discordance with absolute values may lead to misinterpretation of CBC data. Current Interpretive Data was last revised on 2022. Testing performed by: [facility] [address], Medical Office [facility] [address], [place] [address] Basophil pct 1.0 % [facility] ([place]) Comment: Interpretive Data Percent cell count reference ranges are not reported, since discordance with absolute values may lead to misinterpretation of CBC data. Current Interpretive Data was last revised on 2022. Testing performed by: [facility] [address], Medical Office [facility] [address], [place] [address] Blood 11/27/2024 7:45 AM CDT 11/27/2024 7:53 AM CDT us Lakisha Trujillo STUD DAIRY CATTLE FARMER LAB BLOOD ORDERABLES Final Result [facility] SPEARS ([place]) 1 [facility] [place] [address] * (ABNORMAL) CBC with auto differential (11/27/2024 7:45 AM CDT) WBC 4.16 3.80 - 9.90 K/cumm [facility] ([place]) Comment:Testing performed by : [facility] [address], Medical Office [facility] [address], [place] [address] Hgb 13.7 13.0 - 17.5 g/dL [facility] ([place]) Comment:Testing performed by : [facility] [address], Medical Office [facility] [address], [place] [address] Hct 41.5 38.9 - 50.3 % [facility] ([place]) Comment:Testing performed by : [facility] [address], Medical Office [facility] [address], [place] [address] Plt 242 150 - 400 K/cumm [facility] ([place]) Comment:Testing performed by : [facility] [address], Medical Office [facility] [address], [place] [address] MPV 8.6(L) 9.1 - 12.3 fL [facility] ([place]) Comment:Testing performed by : [facility] [address], Medical Office [facility] [address], [place] [address] RBC 4.73 4.30 - 5.80 M/cumm [facility] ([place]) Comment:Testing performed by : [facility] [address], Medical Office [facility] [address], [place] [address] MCV 87.7 81.3 - 96.4 fL [facility] ([place]) Comment:Testing performed by : [facility] [address], Medical Office [facility] [address], [place] [address] MCH 29.0 27.1 - 33.3 pg [facility] ([place]) Comment:Testing performed by : [facility] [address], Medical Office [facility] [address], [place] [address] MCHC 33.0 32.3 - 35.7 g/dL [facility] ([place]) Comment:Testing performed by : [facility] [address], Medical Office [facility] [address], [place] [address] RDW CV 14.7 11.1 - 14.9 % [facility] ([place]) Comment:Testing performed by : [facility] [address], Medical Office [facility] [address], [place] [address] RDW SD 47.8 35.7 - 48.1 fL [facility] ([place]) Comment:Testing performed by : [facility] [address], Medical Office [facility] [address], [place] [address] Blood 11/27/2024 7:45 AM CDT 11/27/2024 7:53 AM CDT Lakisha Trujillo STUD DAIRY CATTLE FARMER LAB BLOOD ORDERABLES Final Result [facility] ([place]) 1 [facility] Department [place] [address] * Lactate dehydrogenase (LD) (11/27/2024 7:45 AM CDT) Lactate dehydrogenase (LDH) 194 100 - 250 Units/L Comment:Testing performed by : [facility], [facility], [place], [address] Blood 11/27/2024 7:45 AM CDT 11/27/2024 8:30 AM CDT us Lakisha Trujillo STUD DAIRY CATTLE FARMER LAB BLOOD ORDERABLES Final Result [facility] ([place]) 1 [facility] [place] [address] from Last 3 Months Insurance MEDICARE [facility] [place] [id number] MEDICARE [facility] Advance Directives For more information, please contact: [phone] * Full Code (Latest Code Status on File) Date Activated Date Inactivated Comments 05/15/2024 8:41 AM 05/15/2024 2:24 PM * Full Code Date Activated Date Inactivated Comments 05/15/2024 8:41 AM 05/15/2024 8:41 AM * Full Code Date Activated Date Inactivated Comments 12/14/2023 4:31 PM 12/17/2023 3:56 PM * Full Code Date Activated Date Inactivated Comments 12/23/2022 12:02 PM 12/24/2022 4:02 PM * Full Code Date Activated Date Inactivated Comments 12/23/2022 8:49 AM 12/23/2022 11:50 AM Care Teams Tack Picker Relationship Specialty Start Date End Date [place] [address] PCP - General 06/12/07 Alessandro Andre MD [address] [place] [address] Consulting Physician Urology 02/21/20 Tashi Yang MD PhD [address] [place] [address] Consulting Physician Radiation Oncology 07/26/23 Dinorah Medrano MD [address] [place] [address] [place] [address] Consulting Physician Gastroenterology 12/17/23 Benton Morris MD [address] [place] [address] [place] [address] Medical Oncologist/Operations General Agent Medical Oncology 11/23/24
--- OUTSIDE RECORDS SUMMARY | 2025-02-15 11:58 | XMS_ITS ---
Author Organization [facility] [address] [facility] Address [address] [address] Care Team Providers Care Iron Cutter Name Role Phone Justen Interiano MD Primary Care Provider [phone] Alessandro Andre MD Unavailable [phone] Tashi Yang MD PhD Unavailable [phone] Dinorah Medrano MD Unavailable [phone] Benton Morris MD Unavailable [phone] Active Problems Problem Noted Date Diagnosed Date Limitation of joint motion of finger, right 12/2023 Assessment & Plan (06/22/2024 11:32 AM BRIM CURLER): Limitation in ROM in R arm but [...] Assessment & Plan (12/21/2023 11:06 AM CDT): IKita NP have personally reviewed pertinent inpatient and/or [...] 07/14/2023 Assessment & Plan (07/14/2023 10:35 AM BRIM CURLER): Good response to p.r.n. use of hydroxyzine, [...] so. Assessment & Plan (07/14/2023 10:33 AM BRIM CURLER): Denies any abdominal pain following hospital discharge. Patient continues MiraLax, reports normal BMs. No nausea or vomiting. Denies any blood in stools. Recommended he follow-up with established power system electrical engineer. Assessment & Plan (12/23/2022 12:43 PM CDT): [...] 08/25/2022 Assessment & Plan (08/25/2022 4:26 PM BRIM CURLER): Resolved. Breathing even and unlabored. No chest pain or tightness. Will continue to monitor. Moderate persistent asthma 08/25/2022 Assessment & Plan (08/25/2022 12:54 PM BRIM CURLER): Encouraged continue use of ICS and prn [...] so. Assessment & Plan (07/14/2023 10:34 AM BRIM CURLER): Reviewed office visit notes of Dr. Kirk, patient will proceed with radiation oncology. Scheduled for PET scan early next month. Nephrolithiasis 07/18/2022 Diverticulosis 02/16/2020 Partial small bowel obstruction 02/16/2020 Localized swelling on right hand 04/11/2019 Assessment & Plan (06/22/2024 11:31 AM BRIM CURLER): Swelling continues will add Meloxicam to aid in relief of swelling and hopefully restore ROM. Antibiotic-induced allergic rash 03/16/2019 Bleeding from the nose 08/17/2017 Assessment & Plan (08/17/2017 1:54 PM BRIM CURLER): Use saline nasal spray to keep air way moist. Use humidifier. Do not blow nose forcefully for the next week. Use antibiotic ointment. BMI 26.0-26.9,adult 08/17/2017 Assessment & Plan (06/22/2024 11:31 AM BRIM CURLER): Weight appropriate for patient. Assessment & Plan (08/17/2017 2:53 PM BRIM CURLER): BMI wnl-continue with exercise and diet Excessive ear wax, bilateral 08/17/2017 Assessment & Plan (08/17/2017 2:55 PM BRIM CURLER): Excessive Ear Wax Prevention Cerumen accumulation or excessive ear wax can cause symptoms like-Hearing loss ?Earache ?Ear fullness ?Itchiness ?Reflex cough ?Dizziness ?Tinnitus Normal ears use a cotton ball dipped in mineral oil, olive oil, Baby oil, or [place] oil and place in the external canal [...] Overview (08/24/2023): Elevated PSA Left ureteral stone Current Treatment and Therapy Plans No current plan information found. Past Treatment and Therapy Plans Oncology Chemotherapy Treatment Plan Name Start Date Discontinue Date Treatment Medications Discontinue Reason Plan Provider Cycles RiTUXimab Weekly x 4 - Lymphoma 01/19/2023 03/03/2023 riTUXimab-pvvr (RUXIENCE) IVPB 1 mg/ml Therapy Complete Bill Iraheta MD 1 of 1 cycle started Radiation Treatments * Course [id number]/28/2023 - 11/29/2023 Treatment Period Energy Fraction Dose Fractions Total Dose Plans Planned PROST BST 11/03/2023 - 11/29/2023 180 19 / 3,420 PELV_PROST 09/28/2023 - 11/02/2023 180 25 / 4,500 Reference Points Delivered PROST BST 11/03/2023 - 11/29/2023 3,420 PELVIS 09/28/2023 - 11/02/2023 4,500 Lifetime Dose Tracking * Chemical Lifetime Dose Automatic Entry Manual Entr y Fluoro Time 0.5 minutes 0.5 minutes 0 minutes Air kerma at the reference point (Ka,r) 29.73 mGy 2 9.73 mGy 0 mGy Resolved Problems Problem Noted Date Diagnosed Date Resolved Date C. difficile colitis 12/21/2023 024 Assessment & Plan (12/21/2023 11:06 AM CDT): Symptomatically improving. Continue vancomycin. Follow-up with Gastroenterology as directed.
--- OUTSIDE RECORDS SUMMARY | 2025-02-15 11:58 | XMS_ITS | Clinical Summary ---
Author Organization [facility] Address [address] [place] [address] Phone Care Team Providers Care Stopboard Assembler Name Role Phone Justen Interiano MD Primary Care Provider [phone] Allergies Active Allergy Reactions Criticality Noted Date Comments Clindamycin Rash 11/08/2016 Medications albuterol 108 (90 Base) MCG/ACT Aerosol Solution take 2 Puffs by inhalation every 6 hours as needed. 3 Active amLODIPine (NORVASC) 5 MG Tablet Take 5 mg by mouth daily. 3 Active aspirin EC 81 MG Tablet Delayed Response Take 81 mg by mouth daily. Active fluticasone-aleksanrd meterol (ADVAIR) 250-50 MCG/ACT AEROSOL POWDER, BREATH ACTIVATED take 1 Puff by inhalation in the morning and at bedtime. 2 Active hydrOXYzine (ATARAX) 25 MG Tablet Take 25 mg by mouth every 6 hours as needed. For itching 2 Active ibuprofen (MOTRIN) 400 MG Tablet Take 400 mg by mouth every 6 hours as needed. Active methocarbamol (ROBAXIN) 500 MG Tablet Take 500 mg by mouth every 4 hours as needed. Active polyethylene glycol (GLYCOLAX, MIRALAX) 17 g Pack Take 17 g by mouth daily. Active tamsulosin (FLOMAX) 0.4 MG Capsule Take 1 Capsule by mouth daily. 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 Overview (07/05/2023): of the small bowel, treated 2022, and resolved Prostate cancer 07/18/2022 Diverticulosis 07/18/2022 Nephrolithiasis 07/18/2022 HTN (hypertension) Asthma Encounters Date Type Department Care Team Description 02/15/2025 Travel from Last 3 Months Family History Medical History Relation Name Comments Prostate Cancer Brother 1 Heart Attack Brother 2 Leukemia/Lymphoma Father leukemia Hypertension Mother Stroke Mother No Known Problems Son 1 No Known Problems Son 2 No Known Problems Son 3 Relation Name Status Comments Brother 1 Brother 2 Father Mother Sister Son 1 Alive Son 2 Alive Son 3 Alive Social History Tobacco Use Types Packs/Day Years Used Date Smoking Tobacco: Former Cigarettes Q uit: 1984 Smokeless Tobacco: Never Alcohol Use Standard Drinks/Week Comments No 0 (1 standard drink = 0.6 oz pur e alcohol) [facility] Utilities Answer Date Recorded In the past 12 months has e [employer], gas, oil, or water [employer] threatened to shut off services in your home? No 07/05/2023 Social Connection and Isolation Panel Answer Date Recorded In a typical week, how many times do you talk on the phone with family, friends, or neighbors? Never 07/04/2023 How often do you get together with friends or re latives? Never 07/04/2023 How often do you attend baptism or congregational serv ices? Never 07/04/2023 Do you belong to any clubs o r organizations such as baptism groups, unions, fraternal or athletic groups, or school groups? No 07/04/2023 How often do you attend meet ings of the clubs or organizations you belong to? Never 07/04/2023 Are you , , di vorced, , never , or living with a partner? 07/04/2023 AUDIT-C Answer Date Recorded Q1: How often do you have a drink containing alcohol? Never 07/04/2023 Q2: How many drinks containi ng alcohol do you have on a typical day when you are drinking? Patient does not drink Q3: How often do you have si x or more drinks on one occasion? Never 07/04/2023 Overall Financial Resource Strain (CARDIA) Answe r Date Recorded How hard is it for you to pa y for the very basics like food, housing, medical care, and heating? Not hard at all 07/04/2023 [facility] - Occupational Stress Questionnaire Answer Date Recorded Do you feel stress - tense, restless, nervous, or anxious, or unable to sleep at night because your mind is troubled all the time - these days? Only a little 07/04/2023 Exercise Vital Sign Answer Date Recorde d On average, how many days pe r week do you engage in moderate to strenuous exercise (like a brisk walk)? 2 days 07/04/2023 On average, how many minutes do you engage in exercise at this level? 30 min 07/04/2023 Hunger Vital Sign Answer Date Recorded Within the past 12 months, y ou worried that your food would run out before you got the money to buy more. Never true 07/05/20 23 Within the past 12 months, t he food you bought just didn't last and you didn't have money to get more. Never true 07/05/2023 PRAPARE - Transportation Answer Date Re corded In the past 12 months, has l ack of transportation kept you from medical appointments or from getting medications? No 06/17 In the past 12 months, has l ack of transportation kept you from meetings, work, or from getting things needed for daily living? No 07/05/2023 Housing Stability Vital Sign Answer Bassem e Recorded In the last 12 months, was t here a time when you were not able to pay the mortgage or rent on time? No 07/05/2023 In the last 12 months, how many places have you lived? 1 07/05/2023 In the last 12 months, was t here a time when you did not have a steady place to sleep or slept in a half-way (including now)? No 07/05/2023 Sexually Active Control Partners Comments Yes Female Sex and Gender Information Value Date Recorded Sex Assigned at Not on file Legal Sex Male 10:19 PM CDT Gender Identity Not on file Sexual Orientation Not on file Last Filed Vital Signs Vital Sign Reading Time Taken Comments Blood Pressure 166/88 07/06/2023 5:20 AM DISPLAY ARTIST Pulse 104 07/05/2023 4:00 PM DISPLAY ARTIST Temperature 36.6 C (97.9 F) 07/06/2023 5:20 AM DISPLAY ARTIST Respiratory Rate 16 07/06/2023 7:50 AM DISPLAY ARTIST Oxygen Saturation 94% 07/06/2023 7:50 AM DISPLAY ARTIST Inhaled Oxygen Concentration - - Weight 73.3 kg (161 lb 9.6 oz) 07/04/2023 11:39 PM DISPLAY ARTIST Height 167.6 cm (5' 6) 07/04/2023 11:39 PM DISPLAY ARTIST Body Mass Index 26.08 07/04/2023 11:39 PM DISPLAY ARTIST Plan of Treatment Health Maintenance Due Date Last Done Comments Hepatitis C Virus (HCV) Screening 1945 TdaP Immunization 1945 Zoster Immunization (1 of 2) 03/14/2013 01/17/2013 Respiratory Syncytial Virus (RSV) Immunization (Adult) (1 - 1-dose 75+ series) 2018 Pneumococcal Immunization (50+ years) (3 of 3 - PPSV23, PCV20 or PCV21) 04/24/2019 02/27/2019, 09/08/2007 SARS-COV-2 Immunization ( season) 2024 04/13/2023, 04/16/2022, 02/13/2022, Additional history exists Influenza Immunization (#1) 03/18/202503/19, 04/04/2023, 03/31/2022, Additional history exists DTaP/Tdap/Td Immunization Discontinued 09/08/2007 Pneumococcal Immunization Combined Discontinued 02/27/2019, 09/08/2007 Hepatitis B Immunization Aged Out No longer eligible based on patient's age to complete this topic Human Papillomavirus (HPV) Immunization Aged Out No longer eligible based on patient's age to complete this topic Meningococcal Immunization (ACWY) Aged Out No longer eligible based on patient's age to complete this topic Rotavirus Immunization Aged Out No lo nger eligible based on patient's age to complete this topic Insurance 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 PRE-ARREST: Use entire range of life support measures to stabilize the patient. Care Teams Stopboard Assembler Relationship Specialty Start Date End Date Justen Interiano MD Jignesh [place], [place] [id number] PCP - General Internal Medicine 08/04/16
--- OUTSIDE RECORDS SUMMARY | 2025-02-15 11:58 | XMS_ITS | Encounter Summary ---
Author Organization [facility] Care Team Providers Care Talent Development Analyst Name Role Phone Justen Interiano MD Primary Care Provider [phone] Encounter Details Date Type Department Care Team (Latest Contact Info) Description 02/15/2025 Travel Social History Tobacco Use Types Packs/Day Years Used Date Smoking Tobacco: Former Cigarettes Q uit: 1984 Smokeless Tobacco: Never Alcohol Use Standard Drinks/Week Comments No 0 (1 standard drink = 0.6 oz pur e alcohol) [facility] Utilities Answer Date Recorded In the past 12 months has [employer], gas, oil, or water company threatened to shut off services in your home? No 07/05/2023 Social Connection and Isolation Panel Answer Date Recorded In a typical week, how many times do you talk on the phone with family, friends, or neighbors? Never 07/04/2023 How often do you get together with friends or re latives? Never 07/04/2023 How often do you attend mormonism or yazidism serv ices? Never 07/04/2023 Do you belong to any clubs o r organizations such as mormonism groups, unions, fraternal or athletic groups, or [...] you are drinking? Patient does not drink 12/18/202 3 Q3: How often do you have si x or more drinks on one occasion? Never 07/04/2023 Overall Financial Resource Strain (CARDIA) Answe r Date Recorded How hard is it for you to pa y for the very basics like food, housing, medical care, and heating? Not hard at all 07/04/2023 [facility] - Occupational Stress [...] place to sleep or slept in a prison (including now)? No 07/05/2023 Sexually Active Control Partners Comments Yes Female Sex and Gender Information Value Date Recorded Sex Assigned at Not on file Legal Sex Male 10:19 PM CDT Gender Identity Not on file Sexual Orientation Not on file documented as of this encounter Plan of Treatment Not on file documented as of this encounter Visit Diagnoses Not on filedocumented in this encounter Care Teams Talent Development Analyst Relationship Specialty Start Date End Date Justen Interiano MD [address] [place] [address] PCP - General Internal Medicine 08/04/16 documented as of this encounter
--- OUTSIDE RECORDS SUMMARY | 2025-02-15 11:58 | XMS_ITS | Encounter Summary ---
Author Organization [facility] Healthcare Address [address] [place] [address] Care Team Providers Care Run Lead Name Role Phone Justen Interiano MD Primary Care Provider [phone] Alessandro Andre MD Unavailable [phone] Tashi Yang MD PhD Unavailable [phone] Dinorah Medrano MD Unavailable Benton Morris MD Unavailable [phone] Reason for Visit * Reason Comments Abdominal Pain Encounter Details Date Type Department Care Team (Late st Contact Info) Description 02/15/2025 6:51 AM CDT - 02/15/2025 11:08 AM CDT Emergency [facility] Emergency Department [address] [place] [address] Johann Hassan MD [address] [place] [id number] SBO (small bowel obstruction) (HCC) (Primary Dx) Discharge Disposition: Discharge to a critical access hospital Social History Tobacco Use Types Packs/Day Years Used Date Smoking Tobacco: Former Cigarettes 1983 Smokeless Tobacco: Never Alcohol Use Standard Drinks/Week [...] on file Legal Sex Male 11:33 AM ADMIN PROG COORD Gender Identity Not on file Sexual Orientation Not on file documented as of this encounter Last Filed Vital Signs Vital Sign Reading [...] Mass Index 25.4 02/15/2025 6:50 AM CDT documented in this encounter Medications at Time of Discharge albuterol HFA (PROVENTIL HFA,VENTOLIN HFA,PROAIR HFA) 90 mcg/actuation inhalerIndication s:Moderate persistent asthma, unspecified whether complicated INHALE 2 PUFFS BY MOUTH EVERY 6 HOURS NEEDED FOR WHEEZING 9 g 02/08/2025 amLODIPine (NORVASC) 5 mg tablet Take 1 tablet by mouth once daily 90 tablet 11/19/2024 aspirin 81 mg enteric coated tablet Take 1 tablet (81 mg total) by mouth daily calcium citrate malate-vit D3 250 mg-2.5 mcg (100 unit) tablet Take 2 tablets by mouth 2 (two) times a day fluticasone propion-salmetero L (ADVAIR DISKUS) 250-50 mcg/dose diskus inhaler INHALE 1 PUFF BY MOUTH TWICE DAILY. RINSE MOUTH WITH WATER AFTER USE, DO NOT SWALLOW. 60 each 02/08/2025 hydrOXYzine (ATARAX) 25 mg tablet TAKE 1 TABLET BY MOUTH EVERY 6 HOURS NEEDED FOR ITCHING 90 tablet 02/08/2025 ibuprofen (ADVIL,MOTRIN) 400 mg tabletIndications :Pain Take by mouth every 6 (six) hours as needed for pain methocarbamoL (ROBAXIN) 500 mg tablet Take 1 tablet (500 mg total) by mouth 4 (four) times a day as needed for muscle spasms 60 tablet 2 11/22/2023 polyethylene glycol (MIRALAX) 17 gram/dose bulk powder Take 17 g by mouth daily psyllium, aspartame, SF (METAMUCIL SF) 3.4 gram packet Take 1 packet by mouth daily documented as of this encounter Discharge Disposition Disposition Code Departure Means Destination Comment s Discharge to a critical acce [facility] documented in this encounter ED Notes * Johann Hassan MD - 02/15/2025 6:48 AM CDT HPI Chief Complaint Patient presents with ??? Abdominal Pain Patient is a 79-year-old man with a history of hypertension, diverticular disease, lymphoma complicated by bowel obstruction, prostate cancer, and renal colic who presents with abdominal pain, nausea, and vomiting. Onset last night around midnight. Since then has vomited and had several bowel movements. Pain fairly diffuse. Denies fever, chills, chest pain, dyspnea, BM changes, urinary symptoms/hematuria, or other complaints. Patient History: Past Medical History: Diagnosis Date ??? Arthritis ??? Asthma Asthma ??? Chronic idiopathic constipation ??? Clostridioides difficile infection ??? Diverticulitis ??? HTN (hypertension) ??? IBS (irritable bowel syndrome) ??? Kidney stones ??? Lymphoma (HCC) ??? Mesenteric mass ??? Prostate cancer (HCC) radiation completed, 44 treatments ??? SBO (small bowel obstruction) (HCC) Review of Systems Review of Systems Constitutional: Negative for chills and fever. HENT: Negative for congestion, rhinorrhea and sore throat. Eyes: Negative for visual disturbance. Respiratory: Negative for cough and shortness of breath. Cardiovascular: Negative for chest pain. Gastrointestinal: Positive for abdominal pain, nausea and vomiting. Negative for constipation and diarrhea. Genitourinary: Negative for dysuria, frequency and urgency. Musculoskeletal: Negative for myalgias. Skin: Negative for rash. Neurological: Negative for seizures, syncope and headaches. Psychiatric/Behavioral: Negative for confusion. Physical Exam ED Triage Vitals [02/15/25 0650] Temp Pulse Resp BP SpO2 36.2 ??C (97.2 ??F) 90 16 125/81 98 % Temp src Heart Rate Source Patient Position BP Location FiO2 (%) Temporal -- -- -- -- Height Height Method Weight Weight Method 1.664 m (5' 5.5) Stated 70.3 kg (155 lb) Stated Physical Exam Vitals and nursing note reviewed. Constitutional: General: He is not in acute distress. Appearance: He is not ill-appearing or diaphoretic. HENT: Head: Normocephalic and atraumatic. Mouth/Throat: Mouth: Mucous membranes are moist. Eyes: General: No scleral icterus. Extraocular Movements: Extraocular movements intact. Cardiovascular: Rate and Rhythm: Normal rate and regular rhythm. Pulmonary: Effort: Pulmonary effort is normal. No respiratory distress. Abdominal: General: There is no distension. Tenderness: There is abdominal tenderness (Mild diffuse but mostly periumbilical). There is no right CVA tenderness or left CVA tenderness. Musculoskeletal: General: No swelling. Normal range of motion. Cervical back: Normal range of motion. Skin: General: Skin is warm and dry. Findings: No rash. Neurological: General: No focal deficit present. Mental Status: He is alert and oriented to person, place, and time. Mental status is at baseline. Psychiatric: Mood and Affect: Mood normal. Behavior: Behavior normal. [facility] Medical Decision Making 79-year-old man with multiple comorbidities who presents with abdominal pain, nausea, and vomiting.Considerations include bowel obstruction, diverticulitis, and appendicitis. Doubt other emergent intra-abdominal condition. Plan: Labs, CT, pain/nausea control, IV fluids, PSA as patient was supposed to have 1 drawn yesterday and they reportedly had some difficulty getting blood Amount and/or Complexity of Data Reviewed Labs: ordered. Decision-making details documented in ED Course. Radiology: ordered. Decision-making details documented in ED Course. Risk Prescription drug management. Parenteral controlled substances. Decision regarding hospitalization. ED Course as of 02/15/25 1016 Time: 02/16 728 Comment: CBC unremarkable By: Johann Hassan MD Time: 02/16 736 Value: Lactate: 1.6 Comment: Negative By: Johann Hassan MD Time: 02/15 751 Value: Creatinine(!): 1.39 Comment: Baseline CKD By: Johann Hassan MD Time: 02/15 751 Value: Lipase, Serum: 26 Comment: Negative By: Johann Hassan MD Time: 02/15 806 Value: CT Abdomen Pelvis W Contrast Comment: Ileus versus developing SBO By: Johann Hassan MD Time: 08/01 0915 Comment: Unfortunately no surgery coverage here. Patient requested [facility] as a 2nd option but they have no surgery coverage. Will try [facility]. By: Johann Hassan MD Time: 02/15 0949 Comment: Spoke to Dr. Klein at [facility]. He will accept. By: Johann Hassan MD Time: 02/15 1015 Comment: Accepted by hospitalist Dr. Fischer. By: Johann Hassan MD Final diagnoses: SBO (small bowel obstruction) (HCC) Johann Hassan MD 02/15/25 1010 * Emily Mcknight RN - 02/15/2025 6:48 AM CDT Pt to ED for c/o abdominal pain and vomiting since last night. Pt reports hx of prostate cancer, lymphoma and bowel obstructions. Last BM was a few hours ago. documented in this encounter Plan of Treatment Pending Results Name Type Priority Associated Diagnoses Date /Time PSA, total and free Lab Routine 02/15 7:27 AM CDT Scheduled Orders Name Type Priority Associated Diagnoses Orde r Schedule PSA, total and free Lab Routine Once for 1 Occurrences starting 02/15/2025 until 02/15/2025 documented as of this encounter Procedures Procedure Name Priority Date/Time Associated Diagnosis Comments URINALYSIS AND REFLEX TO MICROSCOPIC AND CULTURE STAT 02/15/2025 10:[address] ABDOMEN PELVIS W CONTRAST ED 02/15/2025 7:47 AM CDT SEPSIS LACTATE WITH REFLEX Routine 02/15/2025 7:27 AM CDT EGFR STAT 02/15/2025 7:18 AM CDT DIFFERENTIAL AUTO STAT 02/15/2025 7:1 8 AM CDT CBC WITH AUTO DIFFERENTIAL STAT 02/15/2025 7:18 AM CDT LIPASE STAT 02/15/2025 7:18 AM CDT COMPREHENSIVE METABOLIC PANEL STAT 02/15/2025 7:18 AM CDT documented in this encounter Results * (ABNORMAL) Urinalysis reflex to microscopic [...] tendency for uric acid stone formation. Source: [facility] [employer] Current Interpretive Data was last revised on [...] for microscopic UA and culture not met. [facility] ([place]) Urine 02/15/2025 10:2 5 AM CDT 02/15/2025 10:30 AM CDT us Johann Hassan MD LAB MICROBIOLOGY - GENERAL ORDERABLES Final Result [facility] ([place]) 1 [facility] [place] [address] * CT Abdomen Pelvis W Contrast (02/15/2025 [...] Benton Castaneda M.D. RB: LUCIUS Report ID: [id number] Reading Location: [place] [address] Procedure Note Benton Castaneda MD - 02/15/2025 [...] Benton Castaneda M.D. RB: LUCIUS Report ID: [id number] Reading Location: [place] [address] Johann Hassan MD IMG CT PROCEDURES F inal Result * Sepsis Lactate w/ Reflex (02/15/2025 7:27 AM CDT) Sepsis Lactate 1.6 0.7 - 2.0 mmol/L Blood 02/15/2025 7:27 AM CDT 02/15/2025 7:31 AM CDT us Johann Hassan MD LAB BLOOD ORDERABLE S Final Result [facility] ([place]) [address] [place] [address] [place] [address] * (ABNORMAL) eGFR (02/15/2025 7:18 AM CDT) [...] MD LAB BLOOD ORDERABLE S Final Result [facility] ([place]) [address] [facility] [place] [address] * (ABNORMAL) Differential, auto (02/15/2025 7:18 AM [...] Eosinophil pct 0.3 % [facility] ([place]) Comment: Interpretive Data Percent cell count reference [...] S Final Result [facility] ([place]) 1 [facility] [place] [address] * Lipase (02/15/2025 7:18 AM CDT) Lipase 26 10 - 99 Units/L [facility] ([place]) Blood 02/15/2025 7:18 AM CDT 02/15/2025 7:25 AM CDT us Johann Hassan MD LAB BLOOD ORDERABLE S Final Result Performing Organization Address [facility] de Phone Number [facility] ([place]) [address] [facility] [place] [address] * (ABNORMAL) Comprehensive metabolic panel (02/15/2025 7:18 AM CDT) Sodium 139 135 - 145 mmol/L [facility] ([place]) Potassium, pl 4.2 3.3 - [...] S Final Result [facility] ([place]) [address] [facility] [place] [address] * (ABNORMAL) CBC with auto differential (02/15/2025 [...] RDW CV 14.1 11.1 - 14.9 % [facility] ([place]) RDW SD 44.0 35.7 - 48.1 fL [facility] ([place]) NRBC abs 0.00 0.00 - 0.01 K/cumm [facility] ([place]) Blood 02/15/2025 7:18 AM CDT 02/15/2025 7:25 AM CDT us Johann Hassan MD LAB BLOOD ORDERABLE S Final Result [facility] ([place]) 1 [facility] [place] [address] documented in this encounter Visit Diagnoses Diagnosis SBO (small bowel obstruction) (HCC)- Primary Unspecified intestinal obstruction documented in this encounter Administered Medications Active Administered Medications - up to 3 most recent administrations Medication Order MAR Action Action Date Dose Rate Site dextrose 5% and Lactated Ringer's infusion 100 mL/hr, intravenous, Continuous, Starting on Tue02/15/25 at 1011 New Bag 02/15/2025 10:21 AM CDT 100 mL/hr 100 mL/hr morphine injection 4 mg 4 mg, intravenous, Administer over 4 Minutes, Every 10 min PRN, Moderate/severe pain, Starting on Tue02/15/25 at 0657, For 3 doses, Indications: PainIndications:Pain Given 02/15/2025 7:53 AM CDT 4 mg ondansetron (ZOFRAN) injection 4 mg 4 mg, intravenous, Administer over 2 Minutes, Every 30 min PRN, nausea, vomiting, Starting on Tue02/15/25 at 0657, For 2 doses, Indications: Nausea, VomitingIndications:Nausea, Vomiting Given 02/15/2025 7:53 AM CDT 4 mg Inactive Administered Medications - up to 3 most recent administrations Medication Order MAR Action Action Date Dose Rate Site ioversoL (OPTIRAY 350) syringe 75 mL 75 mL, intravenous, Once in imaging, contrast, Starting on Tue02/15/25 at 0737, For 1 dose Contrast Given 02/15/2025 7:47 AM CDT 75 mL sodium chloride 0.9% bolus 1,000 mL 1,000 mL, intravenous, at 2,000 mL/hr, Administer over 0.5 Hours, Once, On Tue02/15/25 at 0659, For 1 dose New Bag 02/15/2025 7:48 AM CDT 1,000 mL 2000 mL/hr documented in this encounter Active and Recently Administered Medications Times are shown in CDT. Scheduled Medication Order 02/13/2025 02/14/2025 02/15/2025 sodium chloride 0.9% bolus 1,000 mL (COMPLETED) 1,000 mL, intravenous, at 2,000 mL/hr, Administer over 0.5 Hours, Once, On Tue02/15/25 at 0659, For 1 dose 0748 (New Bag - Prov ider: Sunshine Sepulveda RN)[id number] (Stopped - Provider: Sunshine Sepulveda RN) Continuous Medication Order 02/13/2025 02/14/2025 02/15/2025 dextrose 5% and Lactated Ringer's infusion 100 mL/hr, intravenous, Continuous, Starting on Tue02/15/25 at 1011 1021 (New Bag - Prov ider: Sunshine Sepulveda RN)1106 (Stopped - Provider: Sunshine Sepulveda RN) PRN Medication Order 02/13/2025 02/14/2025 02/15/2025 ioversoL (OPTIRAY 350) syringe 75 mL (COMPLETED) 75 mL, intravenous, Once in imaging, contrast, Starting on Tue02/15/25 at 0737, For 1 dose 0747 (Contrast Given - Provider: Venessa Shields, RT) morphine injection 4 mg 4 mg, intravenous, Administer over 4 Minutes, Every 10 min PRN, Moderate/severe pain, Starting on Tue02/15/25 at 0657, For 3 doses, Indications: Pain 0753 (Given - Provid er: Sunshine Sepulveda RN) ondansetron (ZOFRAN) injection 4 mg 4 mg, intravenous, Administer over 2 Minutes, Every 30 min PRN, nausea, vomiting, Starting on Tue02/15/25 at 0657, For 2 doses, Indications: Nausea, Vomiting 0753 (Given - Provid er: Sunshine Sepulveda RN) documented in this encounter Orders Diet Count Last Ordered Date First Orde red Date NPO DIET 1 02/15/2025 documented in this encounter Care Teams Run Lead Relationship Specialty Start Date End Date Justen Interiano MD [address] [place] [address] PCP - General 06/12/07 Alessandro Andre MD [address] [place] [address] Consulting Physician Urology 02/21/20 Tashi Yang MD PhD [address] [place] [address] Consulting Physician Radiation Oncology 07/26/23 Dinorah Medrano MD [address] [place] [address] Consulting Physician Gastroenterology 12/17/23 Benton Morris MD [address] [place] [address] Medical Oncologist/[employer] And Pattern [employer]er Medical Oncology 11/23/24 documented as of this encounter
--- OUTSIDE RECORDS SUMMARY | 2025-02-15 11:58 | XMS_ITS | Clinical Summary ---
Author Organization [facility] Address [address] [place] [address] Care Team Providers Care Border Patrol Agent Name Role Phone Justen Interiano MD Primary Care Provider [phone] Alessandro Andre MD Unavailable [phone] Tashi Yang MD PhD Unavailable [phone] Dinorah Medrano MD Unavailable [phone] Benton Morris MD Unavailable [phone] Allergies Active Allergy Reactions Criticality Noted Date [...] Limitation of joint motion of finger, right 12/0 12/2023 Assessment & Plan (06/22/2024 11:32 AM HAIR SPRING WINDER): Limitation in ROM in R arm but [...] 07/14/2023 Assessment & Plan (07/14/2023 10:35 AM HAIR SPRING WINDER): Good response to p.r.n. use of hydroxyzine, [...] so. Assessment & Plan (07/14/2023 10:33 AM HAIR SPRING WINDER): Denies any abdominal pain following hospital discharge. Patient continues MiraLax, reports normal BMs. No nausea or vomiting. Denies any blood in stools. Recommended he follow-up with established senior production manager. Assessment & Plan (12/23/2022 12:43 PM CDT): [...] 08/25/2022 Assessment & Plan (08/25/2022 4:26 PM HAIR SPRING WINDER): Resolved. Breathing even and unlabored. No chest pain or tightness. Will continue to monitor. Moderate persistent asthma 08/25/2022 Assessment & Plan (08/25/2022 12:54 PM HAIR SPRING WINDER): Encouraged continue use of ICS and prn [...] so. Assessment & Plan (07/14/2023 10:34 AM HAIR SPRING WINDER): Reviewed office visit notes of Dr. Kirk, patient will proceed with radiation oncology. Scheduled for PET scan early next month. Nephrolithiasis 07/18/2022 Diverticulosis 02/16/2020 Partial small bowel obstruction 02/16/2020 Localized swelling on right hand 04/11/2019 Assessment & Plan (06/22/2024 11:31 AM HAIR SPRING WINDER): Swelling continues will add Meloxicam to aid in relief of swelling and hopefully restore ROM. Antibiotic-induced allergic rash 03/16/2019 Bleeding from the nose 08/17/2017 Assessment & Plan (08/17/2017 1:54 PM HAIR SPRING WINDER): Use saline nasal spray to keep air way moist. Use humidifier. Do not blow nose forcefully for the next week. Use antibiotic ointment. BMI 26.0-26.9,adult 08/17/2017 Assessment & Plan (06/22/2024 11:31 AM HAIR SPRING WINDER): Weight appropriate for patient. Assessment & Plan (08/17/2017 2:53 PM HAIR SPRING WINDER): BMI wnl-continue with exercise and diet Excessive ear wax, bilateral 08/17/2017 Assessment & Plan (08/17/2017 2:55 PM HAIR SPRING WINDER): Excessive Ear Wax Prevention Cerumen accumulation or excessive ear wax can cause symptoms like-Hearing loss ?Earache ?Ear fullness ?Itchiness ?Reflex cough ?Dizziness ?Tinnitus Normal ears use a cotton ball dipped in mineral oil, olive oil, Baby oil, or [place] oil and place in the external canal [...] Continue vancomycin. Follow-up with Gastroenterology as directed. Encounters Date Type Department Care Team Description 02/15/2025 6:51 AM CDT - 02/15/2025 11:08 AM CDT Emergency [facility] Emergency Department [address] [place] [address] Johann Hassan MD SBO (small bowel obstruction) (HCC) (Primary Dx) Discharge Disposition: Discharge to a critical access hospital 01/07/2025 8:30 AM CDT Office Visit [facility] [place] [address] [place] [address] Evelia Escalante NP Bacterial conjunctivitis of right eye (Primary Dx) 11/27/2024 8:00 AM CDT Lab [facility] [address] [facility] [address] [place] [address] Malignant neoplasm of prostate (HCC) 11/27/2024 8:00 AM CDT Office Visit [facility] [address] [place] [address] Medical [address] [place] [address] Benton Morris MD Follicular lymphoma grade I, unspecified body region (HCC) (Primary Dx); Malignant neoplasm of prostate (HCC) 11/26/2024 Telephone [facility] [address] [place] [address] Medical Office [address] [place] [address] Isaura Barlow, CLT from Last 3 Months Immunizations Immunization Administration Dates Next Due COVID-19 mRNA ([email or web address]) 0.3 m L (30 mcg) vaccine (12 [...] 04/20/2024 Td, adsorbed 09/08/2007 ZOSTER LIVE 01/17/2013,01/17/2013 Surgical History Surgery Date Site/Laterality Comments COLONOSCOPY 10/16/2016 - 11/14/2016 LITHOTRIPSY Medical History Medical History Date Comments Asthma Asthma Mesenteric mass Lymphoma (HCC) Prostate cancer (HCC) radiation completed, 44 treatments Arthritis Kidney stones HTN (hypertension) IBS (irritable bowel syndrome) Chronic idiopathic constipation Clostridioides difficile infection SBO (small bowel obstruction) (HCC) Diverticulitis Family History Medical History Relation Name Comments Other Brother 2 Ankur Alive and well; Prostate cancer Brother 3 Cancer -pros campo; Cause of : Cancer -prostate Prostate cancer Brother 4 Cancer, pros campo; Coronary artery disease Brother 5 Aashish nary artery disease; Leukemia Father Cancer -leukemi a; Cause of : Cancer -leukemia/Cancer -leukemia; Hypertension Mother Erika Hypertension; Stroke Mother Erika Stroke; Cause o f : Stroke/Stroke; Other Sister 1 Erika Alive and well; Other Sister 3 Alive and well; Relation Name Status Comments Brother 1 Brother 2 Ankur Alive Brother 3 Brother 4 Brother 5 Father Mother Erika Sister 1 Erika Alive Sister 2 Alive Sister 3 Social History Tobacco Use Types Packs/Day Years Used Date Smoking Tobacco: Former Cigarettes 1 1983 Smokeless Tobacco: Never Tobacco Cessation:Counseling Given: Not [...] on file Legal Sex Male 11:33 AM HAIR SPRING WINDER Gender Identity Not on file Sexual Orientation Not on file Obstetrics History Last Filed Vital Signs Vital Sign Reading [...] 02/15/2025 6:50 AM CDT Plan of Treatment Health Maintenance Due Date Last Done Comments Hepatitis B Screening 1963 DTaP/Tdap/Td Vaccine (1 - Tdap) 09/09/2007 8 Zoster Vaccine (1 of 2) 03/14/2013 01/17/2013, 01/17 Covid-19 Vaccine (7 - 2023-2 5 season) 2024 04/20/2024, 04/20/2024, 04/13/2023, Additional history exists Influenza Vaccine (#1) 2025 , 04/13/2023, 04/04/2023, Additional history exists Well Visit 65+ 04/10/2025 04/10/2024, 03/18, 03/31/2022, Additional history exists Depression Screening 06/22/2025 06/22/2024, 04/10/2024, 07/14/2023, Additional history exists Fall Risk Assessment 06/22/2025 06/22/2024, 05/15/2024, 04/10/2024, Additional history exists Pneumococcal vaccine 65+ Completed 024, 02/27/2019, 09/08/2007 Abdominal Aortic Aneurysm (A AA) Screen Completed 02/15/2025, 08/20/2024, 04/14/2024, Additional history exists Medical Devices Explanted Type Area Roller Stainer Device Identifier Shelf Expiration Date Model / Serial / Lot [employer] Kristopher 180-222 Contour 6fr 24cm Large Inner Lumen Low Profile Bladder Jesse Taper Latex Free - [id number] Implanted:Qty: 1 on 02/20/2020 by Alessandro Andre MD at [facility] Explanted:Qty: 1 on 03/05/2020 by Alessandro Andre MD Left: Ureter [employer] Kristopher 12/18/2022 180-222 / / [id number] Procedures Procedure Name Priority Date/Time Associated Diagnosis [...] for uric acid stone formation. Source: Steve [employer] Current Interpretive Data was last revised on 2017 Protein, ur ql Negative Negative [facility] ([place]) Glucose, ur ql Negative Negative [facility] ([place]) Ketones, ur 2+(A) Negative [facility] ([place]) Bilirubin, ur Negative Negative [facility] ([place]) Blood, ur Negative Negative [facility] ([place]) Urobilinogen, ur <2.0 <2.0 mg/dL [facility] ([place]) Nitrite, ur Negative Negative [facility] A ([place]) Leukocyte esterase, ur Negative Negative [facility] ([place]) UA reflex comment Reflex conditions for microscopic UA and culture not met. [facility] (YA) Urine 02/15/2025 10:2 5 AM CDT 02/15/2025 10:30 AM CDT us Johann Hassan MD LAB MICROBIOLOGY - GENERAL ORDERABLES Final Result [facility] SPE[facility] ([place]) [address] [facility] Department [place] [address] * CT Abdomen Pelvis W Contrast (02/15/2025 [...] Benton Castaneda M.D. RB: LUCIUS Report ID: [id number] Reading Location: [id number] Procedure Note Benton Castaneda MD - 02/15/2025 [...] Benton Castaneda M.D. RB: LUCIUS Report ID: [id number] Reading Location: [id number] Johann Hassan MD IMG CT PROCEDURES F inal Result * Sepsis Lactate w/ Reflex (02/15/2025 7:27 AM CDT) Sepsis Lactate 1.6 0.7 - 2.0 mmol/L Blood 02/15/2025 7:27 AM CDT 02/15/2025 7:31 AM CDT Johann Hassan MD LAB BLOOD ORDERABLE S Final Result [facility] PAPILLION) [address] [facility] Department of Laboratories [place] [id number] * (ABNORMAL) eGFR (02/15/2025 7:18 AM CDT) [...] BLOOD ORDERABLE S Final Result [facility] SPEARS (PAPILLION) [address] [facility] Department [place] [address] * (ABNORMAL) Differential, auto (02/15/2025 7:18 AM CDT) Neutrophil abs 6.33 1.50 - 6.50 K/cumm Imm gran abs 0.02 0.00 - 0.10 K/cumm [facility] (PAPILLION) Lymphocyte abs 0.43(L) 0.80 - 3.30 K/cumm [facility] ([facility]) Monocyte abs 0.32 0.20 - 0.80 K/cumm [facility] ([facility]AP[facility]) Eosinophil abs 0.02 0.00 - 0.50 K/cumm [facility] ([facility]) Basophil abs 0.03 0.00 - 0.10 K/cumm [facility] ([place]) Neutrophil pct 88.5 % [facility] (PAPILLION) Comment: Interpretive Data Percent cell count reference ranges are not reported, since discordance with absolute values may lead to misinterpretation of CBC data. Current Interpretive Data was last revised on 2017. Imm gran pct 0.3 % [facility] ([facility]AP[facility]) Comment: Interpretive Data Percent cell count reference [...] 2017. Monocyte pct 4.5 % [facility] ([facility]AP[facility]) Comment: Interpretive Data Percent cell count reference ranges are not reported, since discordance with absolute values may lead to misinterpretation of CBC data. Current Interpretive Data was last revised on 2017. Eosinophil pct 0.3 % [facility] (PAPILLION) Comment: Interpretive Data Percent cell count reference [...] BLOOD ORDERABLE S Final Result [facility] (YA) [address] [facility] Department [place] [address] * (ABNORMAL) CBC with auto differential (02/15/2025 [...] 28.9 27.1 - 33.3 pg [facility] (AY) MCHC 33.7 32.3 - 35.7 g/dL [facility] (YA) RDW CV 14.1 11.1 - 14.9 % [facility] ([place]) RDW SD 44.0 35.7 - 48.1 fL [facility] ([place]) NRBC abs 0.00 0.00 - 0.01 K/cumm [facility] (YA) Blood 02/15/2025 7:18 AM CDT 02/15/2025 7:25 AM CDT us Johann Hassan MD LAB BLOOD ORDERABLE S Final Result [facility] SPEARS (YA) 1 [facility] [place] [address] * Lipase (02/15/2025 7:18 AM CDT) Lipase 26 10 - 99 Units/L [facility] (YA) Blood 02/15/2025 7:18 AM CDT 02/15/2025 7:25 AM CDT Johann Hassan MD LAB BLOOD ORDERABLE S Final Result Performing Organization Address [facility] Co de Phone Number [facility] SPEARS (YA) 1 [facility] [place] [address] * (ABNORMAL) Comprehensive metabolic panel (02/15/2025 7:18 AM CDT) Sodium 139 135 - 145 mmol/L [facility] (YA) Potassium, pl 4.2 3.3 - [...] (YA) Glucose 120 70 - 199 mg/dL [facility] (YA) Comment: Interpretive Data Fasting glucose [...] S Final Result [facility] (YA) [address] [facility] Department [place] [address] * Differential, auto (11/27/2024 7:45 AM CDT) Neutrophil abs 2.55 1.50 - 6.50 K/cumm [facility] (YA) Comment:Testing performed by : [facility] [address], Medical Office [facility] [address], [place] [address] Imm gran abs 0.01 0.00 - 0.10 K/cumm [facility] (YA) Comment:Testing performed by : [facility] [address], Medical Office [facility] [address], [place] [address] Lymphocyte abs 0.83 0.80 - 3.30 K/cumm [facility] (YA) Comment:Testing performed by : [facility] [address], Medical Office [facility] [address], [place] [address] Monocyte abs 0.44 0.20 - 0.80 K/cumm [facility] (YA) Comment:Testing performed by : [facility] [address], Medical Office [facility] [address], [place] [address] Eosinophil abs 0.29 0.00 - 0.50 K/cumm [facility] (YA) Comment:Testing performed by : [facility] [address], Medical Office [facility] [address], [place] [address] Basophil abs 0.04 0.00 - 0.10 K/cumm [facility] (YA) Comment:Testing performed by : [facility] [address], Medical Office [facility] [address], [place] [address] Neutrophil pct 61.2 % [facility] (YA) Comment: Interpretive Data Percent cell count reference ranges are not reported, since discordance with absolute values may lead to misinterpretation of CBC data. Current Interpretive Data was last revised on 2022. Testing performed by: [facility] [address], Medical Office [facility] [address], [place] [address] Imm gran pct 0.2 % [facility] (YA) Comment: Interpretive Data Percent cell count reference ranges are not reported, since discordance with absolute values may lead to misinterpretation of CBC data. Current Interpretive Data was last revised on 2022. Testing performed by: [facility] [address], Medical Office [facility] [address], [place] [address] Lymphocyte pct 20.0 % [facility] (YA) Comment: Interpretive Data Percent cell count reference ranges are not reported, since discordance with absolute values may lead to misinterpretation of CBC data. Current Interpretive Data was last revised on 2022. Testing performed by: [facility] [address], Medical Office [facility] [address], [place] [address] Monocyte pct 10.6 % [facility] (YA) Comment: Interpretive Data Percent cell count reference ranges are not reported, since discordance with absolute values may lead to misinterpretation of CBC data. Current Interpretive Data was last revised on 2022. Testing performed by: [facility] [address], Medical Office [facility] [address], [place] [address] Eosinophil pct 7.0 % [facility] (YA) Comment: Interpretive Data Percent cell count reference ranges are not reported, since discordance with absolute values may lead to misinterpretation of CBC data. Current Interpretive Data was last revised on 2022. Testing performed by: [facility] [address], Medical Office [facility] [address], [place] [address] Basophil pct 1.0 % [facility] SPEARS (YA) Comment: Interpretive Data Percent cell count reference ranges are not reported, since discordance with absolute values may lead to misinterpretation of CBC data. Current Interpretive Data was last revised on 2022. Testing performed by: [facility] [address], Medical Office [facility] [address], [place] [address] Blood 11/27/2024 7:45 AM CDT 11/27/2024 7:53 AM CDT us Lakisha Trujillo WATER TAXI FERRY OPERATOR LAB BLOOD ORDERABLES Final Result [facility] SPEARS (YA) [address] [facility] Department [place] [address] * (ABNORMAL) CBC with auto differential (11/27/2024 7:45 AM CDT) WBC 4.16 3.80 - 9.90 K/cumm [facility] SPEARS (YA) Comment:Testing performed by : [facility] [address], Medical Office [facility] [address] [facility] [address], [place] [address] Hgb 13.7 13.0 - 17.5 g/dL [facility] SPE[facility] (YA) Comment:Testing performed by : [facility] [address], Medical Office [facility] [address], [place] [address] Hct 41.5 38.9 - 50.3 % [facility] (YA) Comment:Testing performed by : [facility] [address], Medical Office [facility] [address], [place] [address] Plt 242 150 - 400 K/cumm [facility] SPE[facility] (YA) Comment:Testing performed by : [facility] [address], Medical Office [facility] [address] [facility] [address], [place] [address] MPV 8.6(L) 9.1 - 12.3 fL [facility] (YA) Comment:Testing performed by : [facility] [address], Medical Office [address], [place] [address] RBC 4.73 4.30 - 5.80 M/cumm [facility] SPEARS (YA) Comment:Testing performed by : [facility] [address], Medical Office [address], [place] [address] MCV 87.7 81.3 - 96.4 fL [facility] SPEARS (YA) Comment:Testing performed by : [facility] [address], Medical Office [facility] [address], [place] [address] MCH 29.0 27.1 - 33.3 pg [facility] SPEARS (YA) Comment:Testing performed by : [facility] [address], Medical Office [facility] [address], [place] [address] MCHC 33.0 32.3 - 35.7 g/dL [facility] SPEARS (YA) Comment:Testing performed by : [facility] [address], Medical Office [facility] [address], [place] [address] RDW CV 14.7 11.1 - 14.9 % [facility] SPEARS (YA) Comment:Testing performed by : [facility] [address], Medical Office [facility] [address] [facility] [address], [place] [address] RDW SD 47.8 35.7 - 48.1 fL [facility]IER PSEARS (PAPILLION) Comment:Testing performed by : [facility] [address], Medical Office [facility] [address] [facility] [address], [place] [address] Blood 11/27/2024 7:45 AM CDT 11/27/2024 7:53 AM CDT us Lakisha Trujillo WATER TAXI FERRY OPERATOR LAB BLOOD ORDERABLES Final Result J[facility]IER SPEARS (PAPILLION) 1 [facility] Department [place] [address] * Lactate dehydrogenase (LD) (11/27/2024 7:45 AM CDT) Lactate dehydrogenase (LDH) 194 100 - 250 Units/L Comment:Testing performed by : [facility], [address] [facility], [place], [address] Blood 11/27/2024 7:45 AM CDT 11/27/2024 8:30 AM CDT us Lakisha Trujillo WATER TAXI FERRY OPERATOR LAB BLOOD ORDERABLES Final Result [facility] (PAPILLION) [address] [facility] Department [place] [address] from Last 3 Months Insurance MEDICARE [facility] HMO/PPO Address: [address] [address] [place] [address] [address] [place] [address] [facility] [place]AN [place] [id number] MEDICARE [facility] HMO/PPO Address: [address] [address] [place] [address] Advance Directives For more information, please contact: [phone] * Full Code (Latest Code Status on [...] 8:49 AM 12/23/2022 11:50 AM Care Teams Border Patrol Agent Relationship Specialty Start Date End Date Justen Interiano MD [address] [place] [address] PCP - General 06/12/07 Alessandro Andre MD [address] [place] [address] Consulting Physician Urology 02/21/20 Tashi Yang MD PhD [address] [place] [address] Consulting Physician Radiation Oncology 07/26/23 Dinorah Medrano MD [address] [place] [address] Consulting Physician Gastroenterology 12/17/23 Benton Morris MD [address] [place] [address] [place] [address] Medical Oncologist/Broker Medical Oncology 11/23/24
--- NOTE | 2025-02-15 12:47 | ADMGEN ---
This patient, Flex Yepez, was admitted to [facility] Surg Room 319-01. Patient/family oriented to hospital policies and general routines including ID bracelet, bed and alarms, visiting hours, pain management, procedures, bathroom and other care routines, personal items, smoking policy, room service/diet, and visiting hours. Information on how to activate the Rapid Response Team has been discussed. Patient/Family are encouraged to report perceived risks to care and to ask questions if they do not understand what they are told or what they should do.
--- NOTE | 2025-02-15 12:51 | P.HP_ITS ---
H&P: HPI History of Present Illness Date/Time: 02/15/25 12:51 Chief Complaint: Abdominal Pain Narrative: 79 y/o M with PMH of colitis, diverticulitis, SBO, HTN, IBS-C, and lymphoma presents here with abdominal pain. The patient presents here as a transfer from [facility] on 02/15 for further care and evaluation of abdominal pain. He presented to [facility] on 02/15. At that time he reported onset of abdominal pain, nausea, vomiting around midnight. He describes the abdominal pain as diffuse, sharp, more so in the left lower quadrant, radiation briefly into his lower back, constant -> inte rmittent, no aggravating or alleviating factors. Since onset of symptoms he has also passed several bowel movements that he describes as intermittently formed and intermittent diarrhea. He denies associated fever, chills, hematochezia, changes in stool color, chest pain or shortness of breath. He has a history of small-bowel obstruction with last occurrence in 2023 (approx 1.5 years ago). Treated conservatively, has had 4 over the last 5 years and no previous episode has required surgical intervention. Last colonoscopy within the last year - now told he no longer has to get them. Initial VS at presentation to OSH: 97.2? F, HR 90, R 16, 125/81, and 98% on RA. ED workup showed: WBC 7.15, hemoglobin 15.0, sodium 139, creatinine 1.39 and GFR 51, glucose 120 lactic 1.6. UA showed a mildly increased specific gravity and 2+ ketones otherwise unremarkable. CT of the abdomen/ pelvis with con showed moderate fluid and air-filled distention of the small bowel extending to the mid ileum with transition to a more normal caliber (consider severe ileus or developing SBO), subtle hazy density along the small bowel mesentery is similar to previous and may be postinflammatory, nonobstructing left renal stones without hydronephrosis or hydroureter, transverse duodenal diverticulum without surrounding induration. Review of Systems Review of Systems: All systems reviewed & are unremarkable except as noted in HPI and below PMFSH Past Medical History Medical History Small bowel obstruction Chronic idiopathic constipation IBS (irritable bowel syndrome) HTN (hypertension) Kidney stones Arthritis Prostate cancer s/p radiation Lymphoma Asthma History of diverticulosis History of colitis Surgical History Surgical History History of lithotripsy Social History Social History Years smoked: 20 Smoking status: Former smoker Tobacco type: cigarettes Smoking end date: 07/18/79 Alcohol intake: never Substance use: never Lack of Transportation: No Lack of Food: Never True Current Housing: I Have Housing Concerned About Future Housing: No Difficulty Paying Gas/Electric Bills: No Difficulty Paying for Meds: No Currently Unemployed: No Education: High School Diploma/GED Difficulty w/ Childcare or Family Care: No Spiritual care concerns: No Meds Home Medications and Allergies Home Medications ?Medication ?Instructions ?Recorded ?Confirmed ?Type cetirizine 10 mg tablet 10 mg PO DAILY 02/16/20 02/16/20 History Allergies Allergy/AdvReac Type Severity Reaction Status Date / Time ciprofloxacin (From Cipro) Allergy Hives Verified 02/16/20 08:59 metronidazole (From Flagyl) Allergy Hives Verified 02/16/20 09:00 Exam Const: General: comfortable and no acute distress Other: , male, elderly, nontoxic appearance HENMT: Face/Nose/Sinus: Normal nares present Mouth: Yes moist mucous membranes Eyes: General: appearance normal, both eyes and all related structures Sclera: sclerae normal Pupils: Equal, round and reactive pupils present EOM: EOMs intact bilaterally Resp: Effort & Inspection: normal respiratory effort Auscultation: clear to auscultation bilaterally Cardio: Rate: regular rate Rhythm: regular rhythm Other: S1-S2 present without murmur, rub, ectopy GI: Other: Abdomen soft, nondistended, nontender upon palpation. Quiet BS in the upper quadrants and the right lower quadrant, more so hyperactive in the left lower quadrant. Skin: General skin exam: normal color and no rashes or lesions noted Wounds: no wounds Neuro: Speech: normal speech Motor exam (neuro): 5/5 motor strength present throughout Sensory Exam: normal sensation Other: A&O x4 Extrem: General: normal to inspection Psych: Mental Status: mental status grossly normal Affect: normal affect Other: Good insight and judgment, pleasant Assessment and Plan Assessment and plan (1) Small bowel obstruction: Code(s): K56.609 - Unspecified intestinal obstruction, unspecified as to partial versus complete obstruction Status: Acute Assessment and Plan: - CT abd/pelvis, 02/15, OSH: moderate fluid and air-filled distention of the small bowel extending to the mid ileum with transition to a more normal caliber (consider severe ileus or developing SBO) subtle hazy density along the small bowel mesentery is similar to previous and may be postinflammatory nonobstructing left renal stones without hydronephrosis or hydroureter transverse duodenal diverticulum without surrounding induration. - IV fluids: NS 100 mL/hr - NPO - pain medication prn - daily clinical reassessment for improvement - general surgery consulted -> No current nausea/vomiting, NG tube not indicated at this time, may need to be inserted if N/V return. Water-soluble small-bowel series to be completed. NPO. - monitor electrolytes and renal function (2) HTN (hypertension): Qualifiers: Hypertension type: primary hypertension Qualified Code(s): I10 - Essential (primary) hypertension Code(s): I10 - Essential (primary) hypertension Status: Chronic Assessment and Plan: - chronic, currently 132/51 - continue home medications - monitor Plan Diet: NPO GI Prophylaxis: Pantoprazole DVT Prophylaxis: SCDs IV fluids: Lines/Tubes: Peripheral IV Code Status: Full code Quality VTE Prophylaxis VTE prophylaxis: mechanical ordered Hospitalist MIPS Advance Care Plan I have confirmed that the patient's Advanced Care Plan is present, code status is documented, or surrogate decision maker is listed in patient medical record.: Yes Medication Reconciliation I have utilized all available resources to obtain, update and review the patients current medications (includes all prescriptions, OTC, herbals, cannabis, and nutritional supplements).: Yes
[2025-02-15 14:00] VITALS: BP 132/51; PULSE 65; RESP 20; TEMP 36.1; O2SAT 97
--- NOTE | 2025-02-15 14:22 | P.CONGS_ITS ---
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 He states that he began having abdominal pain last night around midnighht that continued into the morning with associated nausea and vomiting. Patient has history of colitis, diverticulosis, and small bowel obstruction with his last obstruction being roughly a year and half ago. CT done at [facility] demonstrated ileus versus small bowel obstruction. Patient is not currently feeling nauseated, and he is having regular bowel movements. No NG tube is necessary at this time, but may need to be inserted if he began vomiting again. Will order water-soluble small bowel series and continue to follow with daily labs and serial abdominal exams. Continue with pain control and nausea control. NPO. (2) HTN (hypertension): Code(s): I10 - Essential (primary) hypertension Status: Acute Plan Discussed patient's case and plan of care with Dr. Klein. History of Present Illness Consult details Consult date: 02/15/25 Reason for consult: other (Small bowel obstruction) Requesting physician: Tina Williamson APRN Narrative: Patient is an 79-year-old male with past medical history of diverticulosis, colitis, small bowel obstruction, prostate cancer (s/p radiation), and lymphoma who we have been asked to see in surgical consultation for a small bowel obstruction. He presented to [facility] ED today after transfer from [facility], as they did not have a general surgeon available over the weekend. Patient states that abdominal pain began late last night. At 1st he thought that this pain was due to a kidney stone. However, a CT was obtained at [facility] and demonstrated small bowel obstruction versus ileus. Patient has been having bowel movements with his last 1 around 3:00 a.m. He has also been having some nausea with the pain with his last episode of emesis being around 7:00 a.m. patient states that the last time he had a small bowel obstruction was roughly a year and half ago. These have all been managed medically, as he has never had an abdominal surgery. He has ,however, had previous radiation to his prostate for prostate cancer. [facility] Past Medical History Medical History (Updated 02/15/25 @ 14:26 by Tina Williamson APRN) Small bowel obstruction Chronic idiopathic constipation IBS (irritable bowel syndrome) HTN (hypertension) Kidney stones Arthritis Prostate cancer s/p radiation Lymphoma Asthma History of diverticulosis History of colitis Surgical History Surgical History (Updated 02/15/25 @ 14:26 by Tina Williamson APRN) History of lithotripsy Social History Social History Years smoked: 20 Smoking status: Former smoker Tobacco type: cigarettes Smoking end date: 07/18/79 Alcohol intake: never Substance use: never Lack of Transportation: No Lack of Food: Never True Current Housing: I Have Housing Concerned About Future Housing: No Difficulty Paying Gas/Electric Bills: No Difficulty Paying for Meds: No Currently Unemployed: No Education: High School Diploma/GED Difficulty w/ Childcare or Family Care: No Spiritual care concerns: No Meds Home Medications and Allergies Home Medications ?Medication ?Instructions ?Recorded ?Confirmed ?Type cetirizine 10 mg tablet 10 mg PO DAILY 02/16/20 02/16/20 History Allergies Allergy/AdvReac Type Severity Reaction Status Date / Time ciprofloxacin (From Cipro) Allergy Hives Verified 02/16/20 08:59 metronidazole (From Flagyl) Allergy Hives Verified 02/16/20 09:00 Vital Signs Vital Signs - 24 hr 02/15/25 14:00 Temperature 96.9 F L Pulse Rate 65 Respiratory Rate 20 Blood Pressure 132/51 L Pulse Oximetry 97 Exam Const: General: comfortable and no acute distress Eyes: General: appearance normal, both eyes and all related structures Neck: Neck: supple Resp: Effort & Inspection: normal respiratory effort Cardio: Rate: regular rate GI: Inspection: non-distended GI Palp: Yes Soft to palpation, No Tenderness to palpation present (GI) and No Guarding due to palpation present (GI) Aus cultation: abnormal bowel sounds (Hypoactive) : General: Yes bladder normal to palpation Skin: General skin exam: normal color and no rashes or lesions noted Extrem: General: normal to inspection Psych: Mental Status: mental status grossly normal Results Labs Labs: All other labs normal.
[2025-02-15] MEDS: SODIUM CHLORIDE 0.9% IV 1,000 ML 100 ML IV CONT (14:45)
[2025-02-15] MEDS: HYDROcodone/acetaminophen (*CRX) 5-325 MG TABLET 1 TAB PO ×2 (17:46→22:51)
[2025-02-15] MEDS: ONDANSETRON INJ 4 MG/2 ML VIAL IV PUSH ×2 (17:50→23:39)
[2025-02-15 22:00] VITALS: BP 139/61; PULSE 65; RESP 20; TEMP 35.7; O2SAT 99
[2025-02-16] MEDS: SODIUM CHLORIDE 0.9% IV 1,000 ML 100 ML IV CONT (02:25)
[2025-02-16 06:00] VITALS: BP 136/71; PULSE 60; RESP 20; TEMP 36.4; O2SAT 97
[2025-02-16 06:16] LABS: Hematocrit 39.5 % (42.0-52.0); Hemoglobin 12.2 g/dL (14.0-18.0); Immature Granulocyte Percent A 0.3 % (0-0.5); Lymphocytes Absolute Auto 0.72 K/mm3 (0.9-3.2); Mean Corpuscular HGB Conc 30.9 g/dl (32-36); Mean Corpuscular Hemoglobin 28.0 pg (26-34); Mean Corpuscular Volume 90.8 fl (80-100); Nucleated Red Blood Cells Absolute Auto 0.000 K/mm3 (0.0-0.012); Nucleated Red Blood Cells Perc 0.0 % (0.0-0.2); Platelet Count Result 225 k/mm3 (150-375); Red Blood Count 4.35 M/mm3 (4.6-6.20); White Blood Count 3.4 K/mm3 (4.5-10.0)
[2025-02-16 06:59] LABS: Alanine Aminotransferase 18 U/L (6-50); Albumin Level 3.9 g/dL (3.5-5.1); Alkaline Phosphatase 76 U/L (38-126); Anion Gap 7 mmol/L (4-12); Aspartate Amino Transferase 35 U/L (17-59); Bilirubin,Total 0.5 mg/dL (0.2-1.3); Blood Urea Nitrogen 15 mg/dL (9-20); Calcium 8.8 mg/dL (8.4-10.2); Carbon Dioxide 19 mmol/L (22-30); Chloride 113 mmol/L (98-107); Estimated CRCL calculation 42 ml/min; Estimated Glomerular Filt Rate > 60; Glucose 90 mg/dL (65-110); Magnesium 2.3 mg/dL (1.6-2.3); Potassium 3.7 mmol/L (3.4-5.0); Sodium 139 mmol/L (137-145); Total Protein 6.0 g/dL (6.3-8.2)
[2025-02-16] MEDS: PANTOPRAZOLE SODIUM IV 40 MG VIAL IV PUSH (07:53)
--- NOTE | 2025-02-16 12:43 | WPDPN ---
Progress Note: A&P Assessment and Plan (1) Small bowel obstruction: Code(s): K56.609 - Unspecified intestinal obstruction, unspecified as to partial versus complete obstruction Status: Acute Assessment and Plan: Patient admitted upon transfer from outside hospital for possible small bowel obstruction seen on CT scan and patient had episodes of nausea vomiting. After admission he was kept NPO and a small-bowel follow-through series was done. This showed no evidence of small-bowel obstruction. More than likely the patient probably had an adynamic ileus which caused him to have symptoms. That has now resolved. He has advanced diet to regular which he is tolerating well. No longer having any nausea vomiting and abdominal pain. Can discharge home today. He should follow up to see his oncologist and he has a regular scheduled appointment soon. can also follow his primary care physician. He has no need to follow-up see general surgery in follow-up after discharge. Subjective Date/time seen: 02/16/25 12:43 Interval history: Patient is doing well this morning. Denies any abdominal pain. No nausea. He has tolerated solid food for breakfast and lunch. Continues to have bowel movements. Afebrile vital signs are stable. Small-bowel follow-through series done yesterday shows rapid transit of contrast to the colon without evidence of small-bowel obstruction. Exam GI: Other: Abdomen is soft and nondistended. Patient is nontender. Abdominal exam is benign. Objective Data Vital Signs Vital Signs: Vital Signs - 24 hr 02/15/25 14:00 02/15/25 22:00 02/16/25 06:00 Temperature 36.1 C L 35.7 C L 36.4 C Pulse Rate 65 65 60 Respiratory Rate 20 20 20 Blood Pressure 132/51 L 139/61 136/71 Pulse Oximetry 97 99 97 Oxygen Delivery 02/16/25 07:45 Temperature Pulse Rate Respiratory Rate Blood Pressure Pulse Oximetry Oxygen Delivery Room Air Intake/Output Intake/Output: Intake & Output 02/13/25 02/14/25 02/15/25 02/16/25 23:59 23:59 23:59 23:59 Intake Total 30 236 Output Total 8 Balance 30 228 Meds/Results Medications: Active Medications Generic Name Dose Route Start Last Admin Trade Name Freq PRN Reason Stop Dose Admin Acetaminophen 650 mg 02/15/25 12:53 Acetaminophen 325 Mg Tablet PO Q4H PRN Mild Pain (1-3) or Fever Hydrocodone Bitart/Acetaminophen 1 tab 02/15/25 12:53 02/15/25 22:51 Hydrocodone/Acetaminophen (*Crx) 5-325 Mg Tablet PO 1 tab Q4H PRN Administration Moderate Pain (4-6) Albuterol 2 puff 02/16/25 12:03 Albuterol Sulfate (*Sp) Aerosol 1 Puff INHALATION Q6HRT PRN wheezing Amlodipine Besylate 5 mg 02/16/25 12:20 Amlodipine Besylate 5 Mg Tablet PO DAILY [facility] Aspirin 81 mg 02/16/25 12:20 Aspirin 81 Mg Enteric Tablet PO DAILY [facility] Calcium Carbonate 500 mg 02/16/25 12:20 Calcium/Vitamin D 500 Mg/5 Mcg (200 I.U.) Tablet PO 03/19/25 12:19 DAILY [facility] Hydroxyzine HCl 25 mg 02/16/25 12:03 Hydroxyzine Hcl 25 Mg Tablet PO Q6H PRN itching Sodium Chloride 1,000 mls @ 100 mls/hr 02/15/25 12:55 02/16/25 02:25 Normal Saline Iv IV CONT 100 mls/hr .Q10H VEER Administration Methocarbamol 500 mg 02/16/25 12:03 Methocarbamol 500 Mg Tablet PO BID PRN muscle spasm Morphine Sulfate 2 mg 02/15/25 12:53 Morphine Sulfate (*Crx) 2 Mg/Ml Inj IV PUSH Q4H PRN Pain Rated 7-10 Ondansetron HCl 4 mg 02/15/25 12:53 02/15/25 23:39 Ondansetron Inj 4 Mg/2 Ml Vial IV PUSH 4 mg Q6H PRN Administration Nausea And Vomiting Pantoprazole Sodium 40 mg 02/16/25 09:00 02/16/25 07:53 Pantoprazole Sodium Iv 40 Mg Vial IV PUSH 40 mg QAM EVER Administration Fluticasone/Salmeterol 2 puff 02/16/25 20:00 Fluticasone/Salmeterol 115-21 Mcg Inhaler 1 Puff INHALATION Q12HRT [facility] Radiology Results: ITS Impressions Small Bowel X-Ray 02/15/25 17:24 IMPRESSION: 1. Normal small bowel follow-through study. Labs Labs: Laboratory Results - last 24 hr 02/16/25 05:44 WBC 3.4 L RBC 4.35 L Hgb 12.2 L Hct 39.5 L MCV 90.8 MCH 28.0 MCHC 30.9 L RDW 14.6 H Plt Count 225 MPV 9.0 Immature Gran % (Auto) 0.3 Neut % (Auto) 60.7 Lymph % (Auto) 21.4 [place] % (Auto) 10.7 H Eos % (Auto) 6.0 H Baso % (Auto) 0.9 Lymph # (Auto) 0.72 L [place] # (Auto) 0.4 Eos # (Auto) 0.2 Baso # (Auto) 0.0 Abs Immat Gran (auto) 0.01 Absolute Neuts (auto) 2.0 Absolute Nucleated RBC 0.000 Nucleated RBC % 0.0 Sodium 139 Potassium 3.7 Chloride 113 H Carbon Dioxide 19 L Anion Gap 7 BUN 15 Creatinine 1.06 Estim Creat Clear Calc 42 Estimated GFR > 60 Glucose 90 Calcium 8.8 Magnesium 2.3 Total Bilirubin 0.5 AST 35 ALT 18 Alkaline Phosphatase 76 Total Protein 6.0 L Albumin 3.9
--- NOTE | 2025-02-16 13:16 | P.DS_ITS ---
DS: Admitting Diagnosis Discharge Date 02/16/2025 Admitting Diagnosis SBO vs adynamic ileus DS: Discharge Diagnosis Discharge Diagnosis (1) Small bowel obstruction: Code(s): K56.609 - Unspecified intestinal obstruction, unspecified as to partial versus complete obstruction Status: Acute (2) HTN (hypertension): Qualifiers: Hypertension type: primary hypertension Qualified Code(s): I10 - Essential (primary) hypertension Code(s): I10 - Essential (primary) hypertension Status: Chronic DS: Summary Hospital Course Reason for hospitalization: SBO vs adynamic ileus Hospital Course: Admission: 79 y/o M with PMH of colitis, diverticulitis, SBO, HTN, IBS-C, and lymphoma presents here with abdominal pain. The patient presents here as a transfer from [facility] on 02/15 for further care and evaluation of abdominal pain. He presented to [facility] on 02/15. At that time he reported onset of abdominal pain, nausea, vomiting around midnight. He describes the abdominal pain as diffuse, sharp, more so in the left lower quadrant, radiation briefly into his lower back, constant -> intermittent, no aggravating or alleviating factors. Since onset of symptoms he has also passed several bowel movements that he describes as intermittently formed and intermittent diarrhea. He denies associated fever, chills, hematochezia, changes in stool color, chest pain or shortness of breath. He has a history of small-bowel obstruction with last occurrence in 2023 (approx 1.5 years ago). Treated conservatively, has had 4 over the last 5 years and no previous episode has required surgical intervention. Last colonoscopy within the last year - now told he no longer has to get them. ED workup showed: WBC 7.15, hemoglobin 15.0, sodium 139, creatinine 1.39 and GFR 51, glucose 120 lactic 1.6. UA showed a mildly increased specific gravity and 2+ ketones otherwise unremarkable. CT of the abdomen/ pelvis with con showed moderate fluid and air-filled distention of the small bowel extending to the mid ileum with transition to a more normal caliber (consider severe ileus or developing SBO), subtle hazy density along the small bowel mesentery is similar to previous and may be postinflammatory, nonobstructing left renal stones without hydronephrosis or hydroureter, transverse duodenal diverticulum without surrounding induration. Hospital course: patient was admitted to the medical unit for possible SBO versus adynamic ileus had a consult to General surgery and started on IV fluids. A small bowel series was completed which showed normal small bowel follow-through study patient reports history of previous a dynamic ileus that time his diet was advanced and he tolerated well with no nausea vomiting reported gas and BM the morning of discharge. patient back to baseline with overall improvement and was discharged home I encouraged increased hydration at home and increased activity. patient ambulatory and back to baseline was discharged home labs reviewed unchanged and within desired wrenches and vitals stable. Status at Discharge Functional status at discharge: independent ambulation Overall status at discharge: patient is back to baseline Time Spent with Patient Time attestation: Total time spent providing and/or coordinating discharge services: Time spent: Greater than 30 minutes Exam Const: General: comfortable and no acute distress Other: , male, elderly, nontoxic appearance HENMT: Face/Nose/Sinus: Normal nares present Mouth: Yes moist mucous membranes Eyes: General: appearance normal, both eyes and all related structures Sclera: sclerae normal Pupils: Equal, round and reactive pupils present EOM: EOMs intact bilaterally Resp: Effort & Inspection: normal respiratory effort Auscultation: clear to auscultation bilaterally Cardio: Rate: regular rate Rhythm: regular rhythm Other: S1-S2 present without murmur, rub, ectopy GI: Auscultation: normal bowel sounds Other: Abdomen soft, nondistended, nontender upon palpation. Skin: General skin exam: normal color and no rashes or lesions noted Wounds: no wounds Neuro: Cranial nerves: Yes Equal, round and reactive pupils present Speech: normal speech Motor exam (neuro): 5/5 motor strength present throughout Sensory Exam: normal sensation Other: A&O x4 Extrem: General: normal to inspection Psych: Mental Status: mental status grossly normal Affect: normal affect Other: Good insight and judgment, pleasant DS: Data Data Completed and Pending Labs on day of discharge: Labs from last 24 hours 02/16/25 05:44 WBC 3.4 L RBC 4.35 L Hgb 12.2 L Hct 39.5 L MCV 90.8 MCH 28.0 MCHC 30.9 L RDW 14.6 H Plt Count 225 MPV 9.0 Immature Gran % (Auto) 0.3 Neut % (Auto) 60.7 Lymph % (Auto) 21.4 [place] % (Auto) 10.7 H Eos % (Auto) 6.0 H Baso % (Auto) 0.9 Lymph # (Auto) 0.72 L [place] # (Auto) 0.4 Eos # (Auto) 0.2 Baso # (Auto) 0.0 Abs Immat Gran (auto) 0.01 Absolute Neuts (auto) 2.0 Absolute Nucleated RBC 0.000 Nucleated RBC % 0.0 Sodium 139 Potassium 3.7 Chloride 113 H Carbon Dioxide 19 L Anion Gap 7 BUN 15 Creatinine 1.06 Estim Creat Clear Calc 42 Estimated GFR > 60 Glucose 90 Calcium 8.8 Magnesium 2.3 Total Bilirubin 0.5 AST 35 ALT 18 Alkaline Phosphatase 76 Total Protein 6.0 L Albumin 3.9 Imaging Radiologist's impression: EXAMINATION: XR sm bowel follow through WS DATE: 02/15/2025 17:22 INDICATION: Small bowel obstruction versus ileus TECHNIQUE: Sfdc Architect radiograph(s) of the abdomen was/were obtained. Oral contrast was administered, and sequential radiographs of the abdomen were obtained until oral contrast was noted to be in the proximal colon. Spot fluoroscopic images of the small bowel were obtained. Fluoroscopy exposure time was 0.4 minutes. A total of 9 fluoroscopic images and 10 overhead radiographs were obtained. Total DAP was 3.9 Gycm^2. COMPARISON: None. FINDINGS: Sfdc Architect image demonstrates excreted contrast in bilateral renal collecting systems and in the bladder likely related to reported outside institution contrast- enhanced CT performed earlier in the day. Transit time from the stomach to proximal colon was approximately 1.5 hours. There is normal caliber and mucosal fold pattern throughout the small bowel. Terminal ileum is normal. IMPRESSION: 1. Normal small bowel follow-through study. Discharge Plan Discharge Attending physician on discharge: Ryne Camilo Consulting providers: Roge Klein; Fiona He; Sammie Mendes; Tina Williamson Paul Discharging Clinician: Fiona He Anticipated Discharge Date/Time: 02/16/25 12:04 Patient Disposition: Home Activity: may shower and as tolerated Diet: regular Discharge Instructions: 1) Ileus: * Recommend increasing oral hydration * Recommend increasing activity How can you care for yourself at home? ? Keep track of any new symptoms or changes in your symptoms. ? Rest until you feel better. ? Be safe with medicines. Take your medicines exactly as prescribed. Call your doctor if you think you are having a problem with your medicine. ? Do not drive after taking a prescription pain medicine. ? Ensure to follow-up with primary care physician as indicated and provide updated medication list provided to you at discharge. When should you call for help? Call 911 anytime you think you may need emergency care. For example, call if: ? You passed out (lost consciousness). Call your doctor now or seek immediate medical care if: ? You have new symptoms like fever, difficulty breathing, Chest pain, vomiting, or rash. ? You have new or different pain. ? You are confused and are having trouble thinking clearly. ? Your symptoms are getting worse. Watch closely for changes in your health, and be sure to contact your doctor if: ? You do not get better as expected. Patient Instructions: Antibiotic Form, Ileus (DC) Patient Language: Irish Stand Alone Forms: General Discharge Information Follow-up/Referrals: Harms,Justen Carpenter M.D. [Primary Care Provider] - 4 Weeks Discharge Medications: Continued albuterol sulfate 90 mcg/actuation HFA aerosol inhaler 2 puff INHALATION Q6H PRN (Reason: wheezing) amlodipine 5 mg tablet 5 mg PO DAILY methocarbamol 500 mg tablet 500 mg PO BID PRN (Reason: muscle spasm) hydroxyzine HCl 25 mg tablet 25 mg PO Q6H PRN (Reason: itching) fluticasone propion-salmeterol 250-50 mcg/dose blister with device 1 inh INHALATION BID aspirin [Adult Low Dose Aspirin] 81 mg tablet,delayed release (DR/EC) 81 mg PO DAILY polyethylene glycol 3350 [Miralax] 17 gram/dose powder 17 g PO DAILY psyllium husk [Daily Fiber] 0.4 gram capsule 0.4 g PO DAILY calcium carbonate-vitamin D2 600 mg calcium- 200 unit tablet 1 tablet PO DAILY Date of admission: 02/15/25 12:53 Primary Care Provider: Laisha,Justen Carpenter Admitting Provider: Huy Fischer Attending physician on admission: Ryne Camilo Condition: Improved Quality VTE Prophylaxis VTE prophylaxis: mechanical ordered -Patient's previous records reviewed on admission -ER notes reviewed in detail on admission -discussed all findings and current treatment plan with patient/Family/POA -Consultations reviewed for recommendations -Patient's disposition for safe discharge discussed with case hardener Dictation performed by Demeure direct speech recognition software, therefore boat painter variants and typographical errors may occur. Hospitalist MIPS Heart Failure (Exclusion) Patient has history of Heart Transplant or Left Ventricular Assistive Device?: No IF YES, STOP HERE Heart Failure (Qualifier) Patient has current or prior documentation of LVEF less than or equal to 40%, or mod/servere depressed LVSF?: No IF NO, STOP HERE
[2025-02-16 14:00] VITALS: BP 121/63; PULSE 56; RESP 14; TEMP 36.6; O2SAT 97
--- NOTE | 2025-02-16 15:34 | PC.NURSE ---
I reviewed the License Pending Registered Nurse's documentation and agree with the findings.
--- OUTSIDE RECORDS SUMMARY | 2025-02-18 08:34 | XMS_ITS | Encounter Summary ---
Author Organization [facility] Healthcare Address [address] [place] [address] Care Team Providers Care Sandwich Wrapper Name Role Phone Justen Interiano MD Primary Care Provider [phone] Alessandro Andre MD Unavailable [phone] Tashi Yang MD PhD Unavailable [phone] Dinorah Medrano MD Unavailable Benton Morris MD Unavailable [phone] Encounter Details Date Type Department Care Team (Late st Contact Info) Description 02/15/2025 11:10 AM CDT Hospital Encounter [facility] Social History Tobacco Use Types Packs/Day Years Used Date Smoking Tobacco: Former Cigarettes 1 9 - 1983 Smokeless Tobacco: Never Alcohol Use Standard Drinks/Week Comments No 0 (1 standard drink = 0.6 oz pur e alcohol) AUDIT-C Answer Date Recorded Frequency of Alcohol Consumption Not on file 05/14/2024 Q2: How many drinks containi ng [...] on file Legal 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 Gender Identity Not on file Sexual Orientation Not on file documented as of this encounter Plan of Treatment Not on file documented as of this encounter Visit Diagnoses Not on filedocumented in this encounter Care Teams Sandwich Wrapper Relationship Specialty Start Date End Date Justen Interiano MD [address] [place] [address] PCP - General 06/12/07 Alessandro nAdre MD [address] [place] [address] Consulting Physician Urology 02/21/20 Tashi Yang MD PhD [address] [place] [address] Consulting Physician Radiation Oncology 07/26/23 Dinorah Medrano MD [address] [place] [address] [place] [address] Consulting Physician Gastroenterology 12/17/23 Benton Morris MD [address] [place] [address] [place] [address] Medical Oncologist/Property Master Medical Oncology 11/23/24 documented as of this encounter
--- OUTSIDE RECORDS SUMMARY | 2025-02-18 08:34 | XMS_ITS ---
Author Organization [facility] [address] [facility] Address [address] [place] [address] Care Team Providers Care Security Nurse Name Role Phone Justen Interiano MD Primary Care Provider [phone] Alessandro Andre MD Unavailable [phone] Tashi Yang MD PhD Unavailable [phone] Dinorah Medrano MD Unavailable [phone] Benton Morris MD Unavailable [phone] Active Problems Problem Noted Date Diagnosed Date Limitation of joint motion of finger, right 12/2023 Assessment & Plan (06/22/2024 11:32 AM COMMERCIAL MAINTENANCE TECHNICIAN): Limitation in ROM in R arm but [...] 07/14/2023 Assessment & Plan (07/14/2023 10:35 AM COMMERCIAL MAINTENANCE TECHNICIAN): Good response to p.r.n. use of hydroxyzine, [...] so. Assessment & Plan (07/14/2023 10:33 AM COMMERCIAL MAINTENANCE TECHNICIAN): Denies any abdominal pain following hospital discharge. Patient continues MiraLax, reports normal BMs. No nausea or vomiting. Denies any blood in stools. Recommended he follow-up with established fractionation plant supervisor. Assessment & Plan (12/23/2022 12:43 PM CDT): [...] 08/25/2022 Assessment & Plan (08/25/2022 4:26 PM COMMERCIAL MAINTENANCE TECHNICIAN): Resolved. Breathing even and unlabored. No chest pain or tightness. Will continue to monitor. Moderate persistent asthma 08/25/2022 Assessment & Plan (08/25/2022 12:54 PM COMMERCIAL MAINTENANCE TECHNICIAN): Encouraged continue use of ICS and prn [...] so. Assessment & Plan (07/14/2023 10:34 AM COMMERCIAL MAINTENANCE TECHNICIAN): Reviewed office visit notes of Dr. Kirk, patient will proceed with radiation oncology. Scheduled for PET scan early next month. Nephrolithiasis 07/18/2022 Diverticulosis 02/16/2020 Partial small bowel obstruction 02/16/2020 Localized swelling on right hand 04/11/2019 Assessment & Plan (06/22/2024 11:31 AM COMMERCIAL MAINTENANCE TECHNICIAN): Swelling continues will add Meloxicam to aid in relief of swelling and hopefully restore ROM. Antibiotic-induced allergic rash 03/16/2019 Bleeding from the nose 08/17/2017 Assessment & Plan (08/17/2017 1:54 PM COMMERCIAL MAINTENANCE TECHNICIAN): Use saline nasal spray to keep air way moist. Use humidifier. Do not blow nose forcefully for the next week. Use antibiotic ointment. BMI 26.0-26.9,adult 08/17/2017 Assessment & Plan (06/22/2024 11:31 AM COMMERCIAL MAINTENANCE TECHNICIAN): Weight appropriate for patient. Assessment & Plan (08/17/2017 2:53 PM COMMERCIAL MAINTENANCE TECHNICIAN): BMI wnl-continue with exercise and diet Excessive ear wax, bilateral 08/17/2017 Assessment & Plan (08/17/2017 2:55 PM COMMERCIAL MAINTENANCE TECHNICIAN): Excessive Ear Wax Prevention Cerumen accumulation or excessive ear wax can cause symptoms like-Hearing loss ?Earache ?Ear fullness ?Itchiness ?Reflex cough ?Dizziness ?Tinnitus Normal ears use a cotton ball dipped in mineral oil, olive oil, Baby oil, or [place] oil and place in the external canal [...]
--- OUTSIDE RECORDS SUMMARY | 2025-02-18 08:35 | XMS_ITS | Clinical Summary ---
Author Organization [facility] Address [address] [place] [address] Phone Care Team Providers Care Management Analyst Name Role Phone Justen Interiano MD Primary Care Provider [phone] Allergies Active Allergy Reactions Criticality Noted Date Comments Clindamycin Rash 11/08/2016 Medications albuterol 108 (90 Base) MCG/ACT Aerosol Solution take 2 Puffs by inhalation every 6 hours as needed. 3 Active amLODIPine (NORVASC) 5 MG Tablet Take 5 mg by mouth daily. 3 Active aspirin EC 81 MG Tablet Delayed Response Take 81 mg by mouth daily. Active fluticasone-aleksandr meterol (ADVAIR) 250-50 MCG/ACT AEROSOL POWDER, BREATH [...] drink = 0.6 oz pur e alcohol) [facility] Utilities Answer Date Recorded In the past 12 months has e mobilePeople, gas, oil, or water [employer] threatened to shut off services in your home? No 07/05/2023 Social Connection and Isolation Panel Answer Date Recorded In a typical week, how many times do you talk on the phone with family, friends, or neighbors? Never 07/04/2023 How often do you get together with friends or re latives? Never 07/04/2023 How often do you attend scientologist or mandaen serv ices? Never 07/04/2023 Do you belong to any clubs o r organizations such as scientologist groups, unions, fraternal or athletic groups, or [...] and heating? Not hard at all 07/04/2023 [facility] of Occupat ional Health - Occupational Stress [...] place to sleep or slept in a halfway (including now)? No 07/05/2023 Sexually Active Control Partners Comments Yes Female Sex and Gender Information Value Date Recorded Sex Assigned at Not on file Legal Sex Male 10:19 PM CDT Gender Identity Not on file Sexual Orientation Not on file Last Filed Vital Signs Vital Sign Reading Time Taken Comments Blood Pressure 166/88 07/06/2023 5:20 AM PUBLIC WORKS MANAGER Pulse 104 07/05/2023 4:00 PM PUBLIC WORKS MANAGER Temperature 36.6 C (97.9 F) 07/06/2023 5:20 AM PUBLIC WORKS MANAGER Respiratory Rate 16 07/06/2023 7:50 AM PUBLIC WORKS MANAGER Oxygen Saturation 94% 07/06/2023 7:50 AM PUBLIC WORKS MANAGER Inhaled Oxygen Concentration - - Weight 73.3 kg (161 lb 9.6 oz) 07/04/2023 11:39 PM PUBLIC WORKS MANAGER Height 167.6 cm (5' 6) 07/04/2023 11:39 PM PUBLIC WORKS MANAGER Body Mass Index 26.08 07/04/2023 11:39 PM PUBLIC WORKS MANAGER Plan of Treatment Health Maintenance Due Date Last Done Comments Hepatitis C Virus (HCV) Screening 1945 TdaP Immunization 1945 Zoster Immunization (1 of 2) 03/14/2013 01/17/2013 Respiratory Syncytial Virus (RSV) Immunization (Adult) (1 - 1-dose 75+ series) 2018 Pneumococcal Immunization (50+ years) (3 of 3 - PCV20 or PCV21) 04/24/2019 02/27/2019, 09/08/2007 SARS-COV-2 [...] age to complete this topic Insurance MEDICARE [facility] SHARED imcu nurse Advance Directives * Full Code (Latest Code Status on File) Date Activated Date Inactivated Comments 07/05/2023 12:15 AM 07/06/2023 3:52 PM CPR-Full Treatment: FULL ARREST: Attempt Resuscitation/CPR wit intubation and mechanical ventilation. PRE-ARREST: Use entire range of life support measures to stabilize the patient. Care Teams Management Analyst Relationship Specialty Start Date End [place] [address] PCP - General Internal Medicine 08/04/16
--- OUTSIDE RECORDS SUMMARY | 2025-02-18 08:35 | XMS_ITS | Referral Summary ---
Author Organization [facility] [address] [facility] lto Address [address] [place] [address] Care Team Providers Care Change Control Specialist Name Role Phone Justen Interiano MD Primary Care Provider [phone] Alessandro Andre MD Unavailable [phone] Tashi Yang MD PhD Unavailable [phone] Dinorah Medrano MD Unavailable [phone] Benton Morris MD Unavailable [phone] Encounters Date Type Department Care Team Description 02/15/2025 11:10 AM CDT Hospital Encounter [facility] BILLING 02/15/2025 6:51 AM CDT - 02/15/2025 11:08 AM CDT Emergency [facility] Emergency Department [address] [place] [address] Johann Hassan MD SBO (small bowel obstruction) (HCC) (Primary Dx) Discharge Disposition: Discharge to a critical access hospital 01/07/2025 8:30 AM CDT Office Visit [facility] [place] [address] [place] [address] Evelia Escalante NP Bacterial conjunctivitis of right eye (Primary Dx) 11/27/2024 8:00 AM CDT Lab [facility] [address] [facility] [address] [place] [address] Malignant neoplasm of prostate (HCC) 11/27/2024 8:00 AM CDT Office Visit [facility] [address] [place] [address] Office [facility] [address] [place] [address] Benton Morris MD Follicular lymphoma grade I, unspecified body region (HCC) (Primary Dx); Malignant neoplasm of prostate (HCC) 11/26/2024 Telephone [facility] [address] [place] [address] Office [facility] [address] [place] [address] Isaura Barlow, CLT from Last 3 [...] Take 1 packet by mouth daily Active albuterol HFA (PROVENTIL HFA,VENTOLIN HFA,PROAIR HFA) [...] NOT SWALLOW. 60 each 02/09/20 25 Active amLODIPine (NORVASC) 5 mg tablet Take 1 tablet by mouth once daily 90 tablet 02/19/20 25 Active hydrOXYzine (ATARAX) 25 mg tablet TAKE 1 TABLET BY MOUTH EVERY 6 HOURS NEEDED FOR ITCHING 90 tablet 10/16/19 25 025 Discontinued albuterol HFA (PROVENTIL HFA,VENTOLIN HFA,PROAIR HFA) 90 mcg/actuation inhalerIndicati ons:Moderate persistent asthma, unspecified whether complicated INHALE 2 PUFFS BY MOUTH EVERY 6 HOURS NEEDED FOR WHEEZING 9 g 11/20/19 25 025 Discontinued amLODIPine (NORVASC) 5 mg tablet Take 1 tablet by mouth once daily 90 tablet 11/20/19 25 025 Discontinued fluticasone propion-salmete roL (ADVAIR DISKUS) 250-50 mcg/dose diskus inhaler INHALE 1 PUFF BY MOUTH TWICE DAILY. RINSE MOUTH WITH WATER AFTER USE, DO NOT SWALLOW. 60 each 01/08/20 25 025 Discontinued Active Problems Problem Noted Date Diagnosed Date Limitation of joint motion of finger, right 12/0 12/2023 Assessment & Plan (06/22/2024 11:32 AM HOUSEHOLD APPLIANCE ASSEMBLER): Limitation in ROM in R arm but [...] Assessment & Plan (12/21/2023 11:06 AM CDT): I, Kita W. Olivier, CLAIMS SERVICE ADJUSTOR have personally reviewed pertinent inpatient and/or ED [...] 07/14/2023 Assessment & Plan (07/14/2023 10:35 AM HOUSEHOLD APPLIANCE ASSEMBLER): Good response to p.r.n. use of hydroxyzine, [...] so. Assessment & Plan (07/14/2023 10:33 AM HOUSEHOLD APPLIANCE ASSEMBLER): Denies any abdominal pain following hospital discharge. Patient continues MiraLax, reports normal BMs. No nausea or vomiting. Denies any blood in stools. Recommended he follow-up with established telegraph repeater technician. Assessment & Plan (12/23/2022 12:43 PM CDT): [...] 08/25/2022 Assessment & Plan (08/25/2022 4:26 PM HOUSEHOLD APPLIANCE ASSEMBLER): Resolved. Breathing even and unlabored. No chest pain or tightness. Will continue to monitor. Moderate persistent asthma 08/25/2022 Assessment & Plan (08/25/2022 12:54 PM HOUSEHOLD APPLIANCE ASSEMBLER): Encouraged continue use of ICS and prn [...] so. Assessment & Plan (07/14/2023 10:34 AM HOUSEHOLD APPLIANCE ASSEMBLER): Reviewed office visit notes of Dr. Kirk, patient will proceed with radiation oncology. Scheduled for PET scan early next month. Nephrolithiasis 07/18/2022 Diverticulosis 02/16/2020 Partial small bowel obstruction 02/16/2020 Localized swelling on right hand 04/11/2019 Assessment & Plan (06/22/2024 11:31 AM HOUSEHOLD APPLIANCE ASSEMBLER): Swelling continues will add Meloxicam to aid in relief of swelling and hopefully restore ROM. Antibiotic-induced allergic rash 03/16/2019 Bleeding from the nose 08/17/2017 Assessment & Plan (08/17/2017 1:54 PM HOUSEHOLD APPLIANCE ASSEMBLER): Use saline nasal spray to keep air way moist. Use humidifier. Do not blow nose forcefully for the next week. Use antibiotic ointment. BMI 26.0-26.9,adult 08/17/2017 Assessment & Plan (06/22/2024 11:31 AM HOUSEHOLD APPLIANCE ASSEMBLER): Weight appropriate for patient. Assessment & Plan (08/17/2017 2:53 PM HOUSEHOLD APPLIANCE ASSEMBLER): BMI wnl-continue with exercise and diet Excessive ear wax, bilateral 08/17/2017 Assessment & Plan (08/17/2017 2:55 PM HOUSEHOLD APPLIANCE ASSEMBLER): Excessive Ear Wax Prevention Cerumen accumulation or excessive ear wax can cause symptoms like-Hearing loss ?Earache ?Ear fullness ?Itchiness ?Reflex cough ?Dizziness ?Tinnitus Normal ears use a cotton ball dipped in mineral oil, olive oil, Baby oil, or [place] oil and place in the external canal [...] Immunization Administration Dates Next Due COVID-19 mRNA (Front Row) 0.3 m L (30 mcg) vaccine (12 [...] 1 [birth year] - 1983 Smokeless Tobacco: Never Tobacco Cessation:Counseling Given: [...] on file Legal Sex Male 11:33 AM HOUSEHOLD APPLIANCE ASSEMBLER Gender Identity Not on file Sexual Orientation [...] on file Medical Devices Explanted Type Area Biomedical Manager Device Identifier Shelf Expiration Date Model / Serial / Lot [employer]opher 180-222 Contour 6fr 24cm Large Inner Lumen Low Profile Bladder Jesse Taper Latex Free - [id number] Implanted:Qty: 1 on 02/20/2020 by Alessandro Andre MD at [facility] Explanted:Qty: 1 on 03/05/2020 by Alessandro Andre MD Left: Ureter [employer] Kristopher 12/18/2022 180-222 / / [id number] Procedures Procedure Name Priority Date/Time Associated Diagnosis [...] for uric acid stone formation. Source: [employer] Current Interpretive Data was last revised on [...] microscopic UA and culture not met. [facility] ([place]) Urine 02/15/2025 10:2 5 AM CDT 02/15/2025 10:30 AM CDT us Johann Hassan MD LAB MICROBIOLOGY - GENERAL ORDERABLES Final Result [facility] ([place]) 1 [facility] [place] [address] * CT Abdomen Pelvis W Contrast (02/15/2025 [...] Benton Castaneda M.D. RB: LUCIUS Report ID: [id number] Reading Location: [id number] Procedure Note Benton Castaneda MD - 02/15/2025 [...] Benton Castaneda M.D. RB: LUCIUS Report ID: [id number] Reading Location: [id number] us Johann Hassan MD IMG CT PROCEDURES F inal Result * Sepsis Lactate w/ Reflex (02/15/2025 7:27 AM CDT) Sepsis Lactate 1.6 0.7 - 2.0 mmol/L Blood 02/15/2025 7:27 AM CDT 02/15/2025 7:31 AM CDT us Johann Hassan MD LAB BLOOD ORDERABLE S Final Result [facility] ([facility] 1 [facility] Department [place] [address] * (ABNORMAL) eGFR (02/15/2025 7:18 AM CDT) [...] BLOOD ORDERABLE S Final Result JABIER [facility] ([place]) 1 [facility] Department [place] [address] * (ABNORMAL) Differential, auto (02/15/2025 7:18 AM CDT) Neutrophil abs 6.33 1.50 - 6.50 K/cumm Imm gran abs 0.02 0.00 - 0.10 K/cumm [facility] ([place]) Lymphocyte abs 0.43(L) 0.80 - 3.30 K/cumm [facility] ([place]) Monocyte abs 0.32 0.20 - 0.80 K/cumm [facility] ([place]) Eosinophil abs 0.02 0.00 - 0.50 K/cumm [facility] ([place]) Basophil abs 0.03 0.00 - 0.10 K/cumm [facility] ([place]) Neutrophil pct 88.5 % [facility] ([place]) Comment: Interpretive Data Percent cell count reference [...] S Final Result [facility] ([place]) 1 [facility] Department [place] [address] * (ABNORMAL) CBC with auto differential (02/15/2025 [...] S Final Result [facility] ([place]) 1 [facility] Department [place] [address] * Lipase (02/15/2025 7:18 AM CDT) Lipase 26 10 - 99 Units/L [facility] Blood 02/15/2025 7:18 AM CDT 02/15/2025 7:25 AM CDT Johann Hassan MD LAB BLOOD ORDERABLE S Final Result Performing Organization Address [facility] Co de Phone Number JABIER SPE[facility] ([place]) 1 [facility] Department of [employer] [place] [address] * (ABNORMAL) Comprehensive metabolic panel (02/15/2025 7:18 [...] classification and Diagnosis of Diabetes Diabetes Care 202; 46: S19-S40. Current interpretive data was last [...] S Final Result [facility] ([place]) 1 [facility] Department [place] [address] * Differential, auto (11/27/2024 7:45 AM CDT) Neutrophil abs 2.55 1.50 - 6.50 K/cumm [facility] ([place]) Comment:Testing performed by : [facility] [address], Medical Office [facility] [address], [place] [address] Imm gran abs 0.01 0.00 - 0.10 K/cumm [facility] ([place]) Comment:Testing performed by : [facility] [address], Medical Office [facility] [address], [place] [address] Lymphocyte abs 0.83 0.80 - 3.30 K/cumm [facility] ([place]) Comment:Testing performed by : [facility] [address], Medical Office [facility] [address], [place] [address] Monocyte abs 0.44 0.20 - 0.80 K/cumm [facility] ([place]) Comment:Testing performed by : [facility] [address], Medical Office [facility] [address], [place] [address] Eosinophil abs 0.29 0.00 - 0.50 K/cumm [facility] ([place]) Comment:Testing performed by : [facility] [address], Medical Office [facility] [address], [place] [address] Basophil abs 0.04 0.00 - 0.10 K/cumm [facility] ([place]) Comment:Testing performed by : [facility] [address], Medical Office [facility] [address], [place] [address] Neutrophil pct 61.2 % [facility] ([place]) Comment: Interpretive Data Percent cell count reference ranges are not reported, since discordance with absolute values may lead to misinterpretation of CBC data. Current Interpretive Data was last revised on 2022. Testing performed by: [facility] [address], Medical Office [facility] [address], [place] [address] Imm gran pct 0.2 % [facility] ([place]) Comment: Interpretive Data Percent cell count reference ranges are not reported, since discordance with absolute values may lead to misinterpretation of CBC data. Current Interpretive Data was last revised on 2022. Testing performed by: [facility] [address], Medical Office [facility] [address], [place] [address] Lymphocyte pct 20.0 % [facility] ([place]) Comment: Interpretive Data Percent cell count reference ranges are not reported, since discordance with absolute values may lead to misinterpretation of CBC data. Current Interpretive Data was last revised on 2022. Testing performed by: [facility] [address], Medical Office [facility] [address], [place] [address] Monocyte pct 10.6 % [facility] ([place]) Comment: Interpretive Data Percent cell count reference ranges are not reported, since discordance with absolute values may lead to misinterpretation of CBC data. Current Interpretive Data was last revised on 2022. Testing performed by: [facility] [address], Medical Office [facility] [address], [place] [address] Eosinophil pct 7.0 % [facility] ([place]) Comment: Interpretive Data Percent cell count reference ranges are not reported, since discordance with absolute values may lead to misinterpretation of CBC data. Current Interpretive Data was last revised on 2022. Testing performed by: [facility] [address], Medical Office [facility] [address], [place] [address] Basophil pct 1.0 % J[facility]IER SPE[facility] ([place]) Comment: Interpretive Data Percent cell count reference ranges are not reported, since discordance with absolute values may lead to misinterpretation of CBC data. Current Interpretive Data was last revised on 2022. Testing performed by: [facility] [address], Medical Office [facility] [address], [place] [address] Blood 11/27/2024 7:45 AM CDT 11/27/2024 7:53 AM CDT us Lakisha Trujillo CLAIMS SERVICE ADJUSTOR LAB BLOOD ORDERABLES Final Result JABIER SPE[facility] ([place]) 1 [facility] Department [place] [address] * (ABNORMAL) CBC with auto differential (11/27/2024 7:45 AM CDT) WBC 4.16 3.80 - 9.90 K/cumm J[facility]IER SPE[facility] (YA) Comment:Testing performed by : [facility] [address], Medical Office [facility] [address], [place] [address] Hgb 13.7 13.0 - 17.5 g/dL J[facility]IER SPEARS (YA) Comment:Testing performed by : [facility] [address], Medical Office [facility] [address], [place] [address] Hct 41.5 38.9 - 50.3 % J[facility]IER SPEARS (YA) Comment:Testing performed by : [facility] [address], Medical Office [facility] [address], [place] [address] Plt 242 150 - 400 K/cumm JABIER SPEARS (YA) Comment:Testing performed by : [facility] [address], Medical Office [facility] [address], [place] [address] MPV 8.6(L) 9.1 - 12.3 fL J[facility] SPEARS (YA) Comment:Testing performed by : [facility] [address], Medical Office [address], [place] [address] RBC 4.73 4.30 - 5.80 M/cumm [facility] ([place]) Comment:Testing performed by : [facility] [address], Medical Office [address], [place] [address] MCV 87.7 81.3 - 96.4 fL J[facility] SPE[facility] ([place]) Comment:Testing performed by : [facility] [address], Medical Office [facility] [address], [place] [address] MCH 29.0 27.1 - 33.3 pg [facility] ([place]) Comment:Testing performed by : [facility] [address], Medical Office [address], [place] [address] MCHC 33.0 32.3 - 35.7 g/dL J[facility] SPEARS ([place]) Comment:Testing performed by : [facility] [address], Medical Office [facility] [address], [place] [address] RDW CV 14.7 11.1 - 14.9 % JABIER P[facility] ([place]) Comment:Testing performed by : [facility] [address], Medical Office [facility] [address], [place] [address] RDW SD 47.8 35.7 - 48.1 fL JABIER SPEARS ([place]) Comment:Testing performed by : [facility] [address], Medical Office [facility] [address], [place] [address] Blood 11/27/2024 7:45 AM CDT 11/27/2024 7:53 AM CDT us Lakisha Trujillo CLAIMS SERVICE ADJUSTOR LAB BLOOD ORDERABLES Final Result J[facility]IER SPEARS ([place]) 1 [facility] [place] [address] * Lactate dehydrogenase (LD) (11/27/2024 7:45 AM CDT) Lactate dehydrogenase (LDH) 194 100 - 250 Units/L Comment:Testing performed by : [facility], [address] [facility], [place], [address] Blood 11/27/2024 7:45 AM CDT 11/27/2024 8:30 AM CDT us Lakisha Trujillo CLAIMS SERVICE ADJUSTOR LAB BLOOD ORDERABLES Final Result [facility] ([place]) 1 [facility] [place] [address] from Last 3 Months Insurance MEDICARE [facility] [place] [id number] MEDICARE [facility] Advance Directives For more information, please contact: [phone] * Full Code (Latest Code Status on [...] 8:49 AM 12/23/2022 11:50 AM Care Teams Change Control Specialist Relationship Specialty Start Date End Date Justen Interiano MD [address] [place] [address] PCP - General 06/12/07 Alessandro Andre MD [address] [place] [address] Consulting Physician Urology 02/21/20 Tashi Yang MD PhD [address] [place] [address] Consulting Physician Radiation Oncology 07/26/23 Dinorah Medrano MD [address] [place] [address] Consulting Physician Gastroenterology 12/17/23 Benton Morris MD [address] [place] [address] [place] [address] Medical Oncologist/Feed Crusher Operator Medical Oncology 11/23/24
--- OUTSIDE RECORDS SUMMARY | 2025-02-18 08:35 | XMS_ITS | Clinical Summary ---
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 use of hydroxyzine, [...] so. Assessment & Plan (07/14/2023 10:33 AM MANAGER ENT): Denies any abdominal pain following hospital discharge. Patient continues MiraLax, reports normal BMs. No nausea or vomiting. Denies any blood in stools. Recommended he follow-up with established engineer technical staff. Assessment & Plan (12/23/2022 12:43 PM CDT): [...] 08/25/2022 Assessment & Plan (08/25/2022 4:26 PM MANAGER ENT): Resolved. Breathing even and unlabored. No chest pain or tightness. Will continue to monitor. Moderate persistent asthma 08/25/2022 Assessment & Plan (08/25/2022 12:54 PM MANAGER ENT): Encouraged continue use of ICS and prn [...] so. Assessment & Plan (07/14/2023 10:34 AM MANAGER ENT): Reviewed office visit notes of Dr. Kirk, patient will proceed with radiation oncology. Scheduled for PET scan early next month. Nephrolithiasis 07/18/2022 Diverticulosis 02/16/2020 Partial small bowel obstruction 02/16/2020 Localized swelling on right hand 04/11/2019 Assessment & Plan (06/22/2024 11:31 AM MANAGER ENT): Swelling continues will add Meloxicam to aid in relief of swelling and hopefully restore ROM. Antibiotic-induced allergic rash 03/16/2019 Bleeding from the nose 08/17/2017 Assessment & Plan (08/17/2017 1:54 PM MANAGER ENT): Use saline nasal spray to keep air way moist. Use humidifier. Do not blow nose forcefully for the next week. Use antibiotic ointment. BMI 26.0-26.9,adult 08/17/2017 Assessment & Plan (06/22/2024 11:31 AM MANAGER ENT): Weight appropriate for patient. Assessment & Plan (08/17/2017 2:53 PM MANAGER ENT): BMI wnl-continue with exercise and diet Excessive ear wax, bilateral 08/17/2017 Assessment & Plan (08/17/2017 2:55 PM MANAGER ENT): Excessive Ear Wax Prevention Cerumen accumulation or excessive ear wax can cause symptoms like-Hearing loss ?Earache ?Ear fullness ?Itchiness ?Reflex cough ?Dizziness ?Tinnitus Normal ears use a cotton ball dipped in mineral oil, olive oil, Baby oil, or Gaston oil and place in the external canal [...] CDT - 02/15/2025 11:08 AM CDT Emergency [facility] Emergency Department [address] [place] [address] Johann Hassan MD SBO (small bowel obstruction) (HCC) (Primary Dx) Discharge Disposition: Discharge to a critical access hospital 01/07/2025 8:30 AM CDT Office Visit [facility] [place] [address] [place] [place] [address] Evelia Escalante NP Bacterial conjunctivitis of right eye (Primary Dx) 11/27/2024 8:00 AM CDT Lab [facility] [address] [facility] [address] [place] [address] Malignant neoplasm of prostate (HCC) 11/27/2024 8:00 AM CDT Office Visit [facility] [address] [place] [address] Medical Office [address] [place] [address] Benton Morris MD Follicular lymphoma grade I, unspecified body region (HCC) (Primary Dx); Malignant neoplasm of prostate (HCC) 11/26/2024 Telephone [facility] [address] [place] [address] Medical Office [address] [place] [address] Isaura Barlow, CLT from Last 3 Months Immunizations Immunization Administration Dates Next Due COVID-19 mRNA (Xtium) 0.3 m L (30 mcg) vaccine (12 [...] Tobacco: Former Cigarettes 1983 Smokeless Tobacco: Never Tobacco Cessation:Counseling Given: [...] on file Legal Sex Male 11:33 AM MANAGER ENT Gender Identity Not on file Sexual Orientation [...] history exists Medical Devices Explanted Type Area Credit Analysis Manager Device Identifier Shelf Expiration Date Model / Serial / Lot [employer] 180-222 Contour 6fr 24cm Large Inner Lumen Low Profile Bladder Jesse T[employer] Latex Free - [id number] Implanted:Qty: 1 on 02/20/2020 by Alessandro Andre MD at [facility] Explanted:Qty: 1 on 03/05/2020 by Alessandro Andre MD Left: Ureter [employer]opher 12/18/2022 180-222 / / [id number] Procedures Procedure Name Priority Date/Time Associated Diagnosis [...] ur Straw Yellow Clarity, ur Clear Clear [facility] ([place]) Specific gravity, ur 1.040(H) 1.003 - 1.030 [facility] ([place]) pH, urine 8.0 [facility] ([place]) Comment: Interpretive Data U rine pH is affected by diet, medications, systemic acid-base disturbances, and renal tubular function. pH may affect urinary stone formation. For example, urine pH below 6.0 may help reduce the tendency for calcium phosphate stones and pH greater than 6.0 may reduce the tendency for uric acid stone formation. Source: [place] [employer] Current Interpretive Data was last revised on 2017 Protein, ur ql Negative Negative [facility] ([place]) Glucose, ur ql Negative Negative [facility] ([place]) Ketones, ur 2+(A) Negative [facility] ([place]) Bilirubin, ur Negative Negative [facility] ([place]) Blood, ur Negative Negative [facility] ([place]) [...] GENERAL ORDERABLES Final Result [facility] ([place]) 1 [facility] Department [place] [address] * CT Abdomen Pelvis W Contrast (02/15/2025 [...] Benton Castaneda M.D. RB: LUCIUS Report ID: [id number] Reading Location: [id number] Procedure Note Benton Castaneda MD - 02/15/2025 [...] Benton Castaneda M.D. RB: LUCIUS Report ID: [id number] Reading Location: [place] [address] Johann Hassan MD IMG CT PROCEDURES F inal Result * Sepsis Lactate w/ Reflex (02/15/2025 7:27 AM CDT) Sepsis Lactate 1.6 0.7 - 2.0 mmol/L Blood 02/15/2025 7:27 AM CDT 02/15/2025 7:31 AM CDT Johann Hassan MD LAB BLOOD ORDERABLE S Final Result [facility] ([place]) 1 [facility] Department of Laboratories [place] [id number] * (ABNORMAL) eGFR (02/15/2025 7:18 AM CDT) [...] MD LAB BLOOD ORDERABLE S Final Result [facility] ([place]) 1 [facility] Department [place] [address] * (ABNORMAL) Differential, auto (02/15/2025 7:18 AM CDT) Neutrophil abs 6.33 1.50 - 6.50 K/cumm Imm gran abs 0.02 0.00 - 0.10 K/cumm [facility] ([place]) Lymphocyte abs 0.43(L) 0.80 - 3.30 K/cumm [facility] ([place]) Monocyte abs 0.32 0.20 - 0.80 K/cumm [facility] ([place]) Eosinophil abs 0.02 0.00 - 0.50 K/cumm [facility] ([place]) Basophil abs 0.03 0.00 - 0.10 K/cumm [facility] ([place]) Neutrophil pct 88.5 % [facility] ([place]) Comment: Interpretive Data Percent cell count reference ranges are not reported, since discordance with absolute values may lead to misinterpretation of CBC data. Current Interpretive Data was last revised on 2017. Imm gran pct 0.3 % [facility] ([place]) Comment: Interpretive Data Percent cell count reference [...] S Final Result [facility] ([place]) 1 [facility] Department [place] [address] * (ABNORMAL) CBC with auto differential (02/15/2025 [...] ORDERABLE S Final Result Performing Organization Address City/[facility]/ZIP Co de Phone Number [facility] ([place]) 1 [facility] [place] [address] * Lipase (02/15/2025 7:18 AM CDT) Lipase 26 10 - 99 Units/L [facility] ([place]) Blood 02/15/2025 7:18 AM CDT 02/15/2025 7:25 AM CDT Johann Hassan MD LAB BLOOD ORDERABLE S Final Result Performing Organization Address [facility] de Phone Number [facility] ([place] 1 [facility] [place] [address] * (ABNORMAL) Comprehensive metabolic panel (02/15/2025 7:18 AM CDT) Sodium 139 135 - 145 mmol/L [facility] ([place]) Potassium, pl 4.2 3.3 - 4.9 mmol/L [facility] ([place]) Chloride 99 97 - 110 mmol/L [facility] ([place]) CO2 23 22 - 32 [...] MD LAB BLOOD ORDERABLE S Final Result [facility] ([place] 1 [facility] Department [place] [address] * Differential, auto (11/27/2024 7:45 AM CDT) Neutrophil abs 2.55 1.50 - 6.50 K/cumm [facility] ([place]) Comment:Testing performed by : [facility] [address], Medical Office [facility] [address], [place] [address] Imm gran abs 0.01 0.00 - 0.10 K/cumm [facility] ([place]) Comment:Testing performed by : [facility] [address], Medical Office [facility] [address] [facility] [address], [place] [address] Lymphocyte abs 0.83 0.80 - 3.30 K/cumm [facility] ([place]) Comment:Testing performed by : [facility] [address], Medical Office [facility] [address], [place] [address] Monocyte abs 0.44 0.20 - 0.80 K/cumm [facility] ([place]) Comment:Testing performed by : [facility] [address], Medical Office [address], [place] [address] Eosinophil abs 0.29 0.00 - 0.50 K/cumm [facility] ([place]) Comment:Testing performed by : [facility] [address], Medical Office [address], [place] [address] Basophil abs 0.04 0.00 - 0.10 K/cumm [facility] ([place]) Comment:Testing performed by : [facility] [address], Medical Office [facility] [address], [place] [address] Neutrophil pct 61.2 % [facility] ([place]) Comment: Interpretive Data Percent cell count reference ranges are not reported, since discordance with absolute values may lead to misinterpretation of CBC data. Current Interpretive Data was last revised on 2022. Testing performed by: [facility] [address], Medical Office [address], [place] [address] Imm gran pct 0.2 % [facility] ([place]) Comment: Interpretive Data Percent cell count reference ranges are not reported, since discordance with absolute values may lead to misinterpretation of CBC data. Current Interpretive Data was last revised on 2022. Testing performed by: [facility] [address], Medical Office [facility] [address], [place] [address] Lymphocyte pct 20.0 % [facility] ([place]) Comment: Interpretive Data Percent cell count reference ranges are not reported, since discordance with absolute values may lead to misinterpretation of CBC data. Current Interpretive Data was last revised on 2022. Testing performed by: [facility] [address], Medical Office [address], [place] [address] Monocyte pct 10.6 % [facility] ([place]) Comment: Interpretive Data Percent cell count reference ranges are not reported, since discordance with absolute values may lead to misinterpretation of CBC data. Current Interpretive Data was last revised on 2022. Testing performed by: [facility] [address], Medical Office [address], [place] [address] Eosinophil pct 7.0 % [facility] ([place]) Comment: Interpretive Data Percent cell count reference ranges are not reported, since discordance with absolute values may lead to misinterpretation of CBC data. Current Interpretive Data was last revised on 2022. Testing performed by: [facility] [address], Medical Office [facility] [address], [place] [address] Basophil pct 1.0 % [facility] ([place]) Comment: Interpretive Data Percent cell count reference ranges are not reported, since discordance with absolute values may lead to misinterpretation of CBC data. Current Interpretive Data was last revised on 2022. Testing performed by: [facility] [address], Medical Office [facility] [address], [place] [address] Blood 11/27/2024 7:45 AM CDT 11/27/2024 7:53 AM CDT Lakisha Trujillo CREDIT OPERATIONS PROCESSOR LAB BLOOD ORDERABLES Final Result [facility] ([place]) 1 [facility] [place] [address] * (ABNORMAL) CBC with auto differential (11/27/2024 7:45 AM CDT) WBC 4.16 3.80 - 9.90 K/cumm [facility] ([place]) Comment:Testing performed by : [facility] [address], Medical Office [facility] [address], [place] [address] Hgb 13.7 13.0 - 17.5 g/dL [facility] ([place]) Comment:Testing performed by : [facility] [address], Medical Office [facility] [address], [place] [address] Hct 41.5 38.9 - 50.3 % [facility] ([place]) Comment:Testing performed by : [facility] [address], Medical Office [facility] [address], [place] [address] Plt 242 150 - 400 K/cumm [facility] ([place]) Comment:Testing performed by : [facility] [address], Medical Office [address], [place] [address] MPV 8.6(L) 9.1 - 12.3 fL [facility] ([place]) Comment:Testing performed by : [facility] [address], Medical Office [facility] [address] [facility] [address], [place] [address] RBC 4.73 4.30 - 5.80 M/cumm [facility] ([place]) Comment:Testing performed by : [facility] [address], Medical Office [facility] [address], [place] [address] MCV 87.7 81.3 - 96.4 fL [facility] ([place]) Comment:Testing performed by : [facility] [address], Medical Office [facility] [address], [place] [address] MCH 29.0 27.1 - 33.3 pg [facility] ([place]) Comment:Testing performed by : [facility] [address], Medical Office [facility] [address] [facility] [address], [place] [address] MCHC 33.0 32.3 - 35.7 g/dL [facility] ([place]) Comment:Testing performed by : [facility] [address], Medical Office [facility] [address], [place] [address] RDW CV 14.7 11.1 - 14.9 % [facility] ([place]) Comment:Testing performed by : [facility] [address], Medical Office [facility] [address] [facility] [address], [place] [address] RDW SD 47.8 35.7 - 48.1 fL [facility] ([place]) Comment:Testing performed by : [facility] [address], Medical Office [facility] [address], [place] [address] Blood 11/27/2024 7:45 AM CDT 11/27/2024 7:53 AM CDT Lakisha Trujillo CREDIT OPERATIONS PROCESSOR LAB BLOOD ORDERABLES Final Result [facility] ([place]) 1 [facility] Department [place] [address] * Lactate dehydrogenase (LD) (11/27/2024 7:45 AM CDT) Lactate dehydrogenase (LDH) 194 100 - 250 Units/L Comment:Testing performed by : [facility], [facility], [place], [address] Blood 11/27/2024 7:45 AM CDT 11/27/2024 8:30 AM CDT us Lakisha Trujillo CREDIT OPERATIONS PROCESSOR LAB BLOOD ORDERABLES Final Result [facility] ([place]) 1 [facility] Department [place] [address] from Last 3 Months Insurance MEDICARE [facility] GEHA MCR SUPPLEMENT MEDICARE [facility] Advance Directives For more information, please contact: [phone] * Full Code (Latest Code Status on [...] 8:49 AM 12/23/2022 11:50 AM Care Teams Cattle Alley Worker Relationship Specialty Start Date End Date Justen Interiano MD [address] [place] [address] PCP - General 06/12/07 Alessandro Andre MD [address] [place] [address] Consulting Physician Urology 02/21/20 Tashi Yang MD PhD [address] [place] [address] Consulting Physician Radiation Oncology 07/26/23 Dinorah Medrano MD [address] [place] [address] [place] [address] Consulting Physician Gastroenterology 12/17/23 Benton Morris MD [address] [place] [address] [place] [address] Medical Oncologist/Specialist Managers Medical Oncology 11/23/24
== END 2025-02-16 15:10 | disposition home or self-care (01) ==
PROVIDERS: Student in an Organized Health Care Education/Training Program; Admitting Provider Internal Medicine; PCP Family Medicine; Visit Provider Internal Medicine
DX: K56.609 Unspecified intestinal obstruction, unspecified as to partial versus complete obstruction (principal); I10 Essential (primary) hypertension; K58.1 Irritable bowel syndrome with constipation; Z85.46 Personal history of malignant neoplasm of prostate; Z85.72 Personal history of non-Hodgkin lymphomas; J45.909 Unspecified asthma, uncomplicated; Z87.891 Personal history of nicotine dependence
CPT/HCPCS: 36415; 74250; 80053; 83735; 85025; 96374; 96376; A9270; G0378; J2405; J2470; J7030